=== PATIENT | female | born 1980 | race Caucasian/White ===

== ENCOUNTER 2019-10-23 15:24 | Inpatient (IN) | payer OTHER ==
--- NOTE | 2019-10-23 15:48 | EDM.PDOC ---
<Jeramie Fritz - Last Filed: 10/23/19 19:50> ED HPI GENERAL MEDICAL PROBLEM - General Chief Complaint: Abdominal Pain Stated Complaint: ABDOMINAL PAIN Time Seen by Provider: 10/23/19 15:47 - History of Present Illness INITIAL COMMENTS - FREE TEXT/NARRATIVE: 39-year-old female presents the emergency room with abdominal pain. This pain basically started early this morning and gradually got worse through the course the day. The patient has had some significant nausea loss of appetite she vomited 1 time. But she has not been eating very much and not much came up. She describes the pain is periumbilical and crampy at times. Patient has no prior history of abdominal surgeries or significant medical problems. Patient denies any fevers or chills she does note that if she takes a deep breath then the abdominal pain gets a little worse. Problems with burning or frequency with urination. Denies problems with constipation or diarrhea. Bilateral Lower Abdomen Pain Score (Numeric/FACES): 5 - Related Data Allergies Allergy/AdvReac Type Severity Reaction Status Date / Time No Known Allergies Allergy Verified 10/23/19 15:41 Home Meds: Home Meds Pantoprazole Sodium [Protonix] 40 mg PO Q24H #30 tablet. 10/23/19 [Rx] Sucralfate [Carafate] 1 gm PO QIDACANDBED #28 cup 10/23/19 [Rx] Past Medical History - Past Health History Medical/Surgical History: Denies Medical/Surgical History HEENT History: Reports: None Cardiovascular History: Reports: None Respiratory History: Reports: None Gastrointestinal History: Reports: None Genitourinary History: Reports: None TERRITORY DEVELOPMENT MANAGER History: Reports: None Musculoskeletal History: Reports: None Psychiatric History: Reports: None Endocrine/Metabolic History: Reports: None Hematologic History: Reports: None Immunologic History: Reports: None Oncologic (Cancer) History: Reports: None Dermatologic History: Reports: None - Infectious Disease History Infectious Disease History: Reports: None - Past Surgical History Neurological Surgical History: Reports: Discectomy Social & Family History - Tobacco Use Smoking Status *Q: Never Smoker - Caffeine Use Caffeine Use: Reports: Coffee - Recreational Drug Use Recreational Drug Use: No ED ROS GENERAL - Review of Systems Review Of Systems: See Below Constitutional: Reports: No Symptoms. Denies: Fever, Chills HEENT: Reports: No Symptoms Respiratory: Reports: No Symptoms. Denies: Shortness of Breath, Cough, Sputum Cardiovascular: Reports: No Symptoms Endocrine: Reports: No Symptoms GI/Abdominal: Reports: Abdominal Pain, Decreased Appetite, Nausea, Vomiting. Denies: No Symptoms, Constipation, Diarrhea : Reports: No Symptoms Musculoskeletal: Reports: No Symptoms Skin: Reports: No Symptoms Neurological: Reports: No Symptoms Hematologic/Lymphatic: Reports: No Symptoms Immunologic: Reports: No Symptoms ED EXAM, GI/ABD - Physical Exam Exam: See Below Exam Limited By: No Limitations General Appearance: Alert, No Apparent Distress Head: Atraumatic, Normocephalic Neck: Normal Inspection, Supple, Non-Tender, Full Range of Motion Respiratory/Chest: No Respiratory Distress, Lungs Clear, Normal Breath Sounds Cardiovascular: Regular Rate, Rhythm, No Edema, No Murmur GI/Abdominal Exam: Normal Bowel Sounds, Soft, No Mass, Tender (Patient has significant discomfort in the epigastric area and to a lesser degree left upper quadrant no significant right upper quadrant pain no significant lower abdominal pain with palpation no rigidity rebound or guarding.). No: Distended , Guarding, Rigid, Rebound Back Exam: Normal Inspection. No: CVA Tenderness (L), CVA Tenderness (R) Neurological: Alert, Oriented, Normal Cognition Course - Vital Signs Last Recorded V/S: Last Vital Signs Temp 36.9 C 10/23/19 15:37 Pulse 77 10/23/19 15:37 Resp 16 10/23/19 15:37 BP 128/97 H 10/23/19 15:37 Pulse Ox 98 10/23/19 15:37 - Orders/Labs/Meds Orders: Active Orders 24 hr Category Date Time Status Patient Status [ADT] Routine ADT 10/23/19 20:40 Active Sodium Chloride 0.9% [Saline Flush] Med 10/23/19 19:37 Active 10 ml FLUSH ONETIME PRN ceFAZolin [Ancef] 2 gm Med 10/23/19 20:39 Ordered Premix Bag 1 bag IV ONETIME metroNIDAZOLE/Normal Saline [Flagyl 500 MG in NS 100 ML Med 10/23/19 20:40 Ordered ] 500 mg Premix Bag 1 bag IV ONETIME Medication Orders Cefazolin Sodium/Dextrose 2 gm (/ Premix) 50 mls @ 100 mls/hr IV ONETIME STA Stop: 04/19/20 21:08 Metronidazole 500 mg/ Premix 100 mls @ 100 mls/hr IV ONETIME STA Stop: 10/23/19 21:39 Sodium Chloride (Saline Flush) 10 ml FLUSH ONETIME PRN PRN Reason: KEEP VEIN OPEN Last Admin: 10/23/19 19:45 Dose: 10 ml Labs: Laboratory Tests 10/23/19 10/23/19 10/23/19 Range/Units 17:00 17:00 17:00 WBC 10.46 H (3.98-10.04) K/mm3 RBC 4.95 (3.98-5.22) M/mm3 Hgb 14.2 (11.2-15.7) gm/dl Hct 42.6 (34.1-44.9) % MCV 86.1 (79.4-94.8) fl MCH 28.7 (25.6-32.2) pg MCHC 33.3 (32.2-35.5) g/dl RDW Std Deviation 41.7 (36.4-46.3) fL Plt Count 353 (182-369) K/mm3 MPV 8.1 L (9.4-12.3) fl Neut % (Auto) 82.1 H (34.0-71.1) % Lymph % (Auto) 12.1 L (19.3-51.7) % [place] % (Auto) 4.7 (4.7-12.5) % Eos % (Auto) 0.3 L (0.7-5.8) Baso % (Auto) 0.6 (0.1-1.2) % Neut # (Auto) 8.59 H (1.56-6.13) K/mm3 Lymph # (Auto) 1.27 (1.18-3.74) K/mm3 [place] # (Auto) 0.49 H (0.24-0.36) K/mm3 Eos # (Auto) 0.03 L (0.04-0.36) K/mm3 Baso # (Auto) 0.06 (0.01-0.08) K/mm3 Manual Slide Review Normal smear Sodium 138 (136-145) mEq/L Potassium 4.1 (3.5-5.1) mEq/L Chloride 101 (98-107) mEq/L Carbon Dioxide 23 (21-32) mEq/L Anion Gap 18.1 H (5-15) BUN 8 (7-18) mg/dL Creatinine 0.8 (0.55-1.02) mg/dL Est Cr Clr Drug Dosing 86.63 mL/min Estimated GFR (MDRD) > 60 (>60) mL/min BUN/Creatinine Ratio 10.0 L (14-18) Glucose 107 H (74-106) mg/dL Calcium 10.1 (8.5-10.1) mg/dL Total Bilirubin 0.6 (0.2-1.0) mg/dL AST 15 (15-37) U/L ALT 17 (14-59) U/L Alkaline Phosphatase 66 (46-116) U/L Total Protein 7.5 (6.4-8.2) g/dl Albumin 4.1 (3.4-5.0) g/dl Globulin 3.4 gm/dL Albumin/Globulin Ratio 1.2 (1-2) Lipase 105 (73-393) U/L HCG, Qual Negative (NEGATIVE) Urine Color (Yellow) Urine Appearance (Clear) Urine pH (5.0-8.0) Ur Specific [place] (1.005-1.030) Urine Protein (Negative) Urine Glucose (UA) (Negative) Urine Ketones (Negative) Urine Occult Blood (Negative) Urine Nitrite (Negative) Urine Bilirubin (Negative) Urine Urobilinogen (0.2-1.0) Ur Leukocyte Esterase (Negative) Urine RBC (0-5) /hpf Urine WBC (0-5) /hpf Ur Squamous Epith Cells (0-5) /hpf Urine Bacteria (FEW) /hpf Urine Mucus (FEW) /hpf 10/23/19 Range/Units 18:24 WBC (3.98-10.04) K/mm3 RBC (3.98-5.22) M/mm3 Hgb (11.2-15.7) gm/dl Hct (34.1-44.9) % MCV (79.4-94.8) fl MCH (25.6-32.2) pg MCHC (32.2-35.5) g/dl RDW Std Deviation (36.4-46.3) fL Plt Count (182-369) K/mm3 MPV (9.4-12.3) fl Neut % (Auto) (34.0-71.1) % Lymph % (Auto) (19.3-51.7) % [place] % (Auto) (4.7-12.5) % Eos % (Auto) (0.7-5.8) Baso % (Auto) (0.1-1.2) % Neut # (Auto) (1.56-6.13) K/mm3 Lymph # (Auto) (1.18-3.74) K/mm3 [place] # (Auto) (0.24-0.36) K/mm3 Eos # (Auto) (0.04-0.36) K/mm3 Baso # (Auto) (0.01-0.08) K/mm3 Manual Slide Review Sodium (136-145) mEq/L Potassium (3.5-5.1) mEq/L Chloride (98-107) mEq/L Carbon Dioxide (21-32) mEq/L Anion Gap (5-15) BUN (7-18) mg/dL Creatinine (0.55-1.02) mg/dL Est Cr Clr Drug Dosing mL/min Estimated GFR (MDRD) (>60) mL/min BUN/Creatinine Ratio (14-18) Glucose (74-106) mg/dL Calcium (8.5-10.1) mg/dL Total Bilirubin (0.2-1.0) mg/dL AST (15-37) U/L ALT (14-59) U/L Alkaline Phosphatase (46-116) U/L Total Protein (6.4-8.2) g/dl Albumin (3.4-5.0) g/dl Globulin gm/dL Albumin/Globulin Ratio (1-2) Lipase (73-393) U/L HCG, Qual (NEGATIVE) Urine Color Yellow (Yellow) Urine Appearance Clear (Clear) Urine pH 5.5 (5.0-8.0) Ur Specific [place] > or = 1.030 (1.005-1.030) Urine Protein Negative (Negative) Urine Glucose (UA) Negative (Negative) Urine Ketones 3+ H (Negative) Urine Occult Blood 2+ H (Negative) Urine Nitrite Negative (Negative) Urine Bilirubin 1+ H (Negative) Urine Urobilinogen 0.2 (0.2-1.0) Ur Leukocyte Esterase Negative (Negative) Urine RBC 0-5 (0-5) /hpf Urine WBC 0-5 (0-5) /hpf Ur Squamous Epith Cells 0-5 (0-5) /hpf Urine Bacteria Few (FEW) /hpf Urine Mucus Few (FEW) /hpf Meds: Medications Generic Name Dose Route Start Last Admin Trade Name Freq PRN Reason Stop Dose Admin Cefazolin Sodium/Dextrose 2 gm 50 mls @ 100 mls/hr 10/23/19 20:39 / Premix IV 10/23/19 21:08 ONETIME STA Metronidazole 500 mg/ Premix 100 mls @ 100 mls/hr 10/23/19 20:40 IV 10/23/19 21:39 ONETIME STA Sodium Chloride 10 ml 10/23/19 19:37 10/23/19 19:45 Saline Flush FLUSH 10 ml ONETIME PRN Administration KEEP VEIN OPEN Discontinued Medications Generic Name Dose Route Start Last Admin Trade Name Freq PRN Reason Stop Dose Admin Al Hydroxide/Mg Hydroxide 30 0 ml 10/23/19 16:18 10/23/19 17:00 ml/ Lidocaine HCl 15 ml PO 10/23/19 16:19 45 ml ONETIME ONE Administration Fentanyl 50 mcg 10/23/19 18:57 10/23/19 19:04 Sublimaze IVPUSH 10/23/19 18:58 50 mcg ONETIME ONE Administration Hydromorphone HCl 1 mg 10/23/19 20:09 10/23/19 20:16 Dilaudid IVPUSH 10/23/19 20:10 1 mg ONETIME ONE Administration Lactated Ringer's 1,000 mls @ 999 mls/hr 10/23/19 16:18 10/23/19 17:00 Ringers, Lactated IV 10/23/19 17:18 999 mls/hr .BOLUS ONE Administration Iopamidol 100 ml 10/23/19 19:37 10/23/19 19:45 Isovue-300 (61%) IVPUSH 10/23/19 19:38 100 ml ONETIME ONE Administration Ondansetron HCl 4 mg 10/23/19 16:18 10/23/19 17:00 Zofran IVPUSH 10/23/19 16:19 4 mg ONETIME ONE Administration Pantoprazole Sodium 80 mg 10/23/19 17:41 10/23/19 17:52 Protonix Iv IVPUSH 10/23/19 17:42 80 mg BOLUS ONE Administration Sucralfate 1 gm 10/23/19 17:41 10/23/19 17:53 Carafate PO 10/23/19 17:42 1 gm ONETIME ONE Administration - Re-Assessments/Exams Free Text/Narrative Re-Assessment/Exam: 10/23/19 17:44 Had good improvement with her GI cocktail but it was really short-lived and the pain is coming back we will give her some Protonix and Carafate now still waiting on a urinalysis KUB and upright still pending. 10/23/19 18:37 Had improvement with the Carafate. X-rays been done she has a very large what looks like colonic gas pocket in the splenic flexure of the colon. I cannot be certain this is not in her stomach awaiting radiology read. 10/23/19 19:21 Radiologist believes this was slightly dilated colonic gas pocket but to be certain he wanted to get decubitus views this is happening at this time. 10/23/19 19:29 Decubitus view reviewed by radiology there is some questionable concern about free air noted radiology recommends CT with IV contrast no oral Departure - Departure Disposition: Admitted As Inpatient 64 Clinical Impression: Volvulus of transverse colon - Discharge Information Prescriptions: Pantoprazole Sodium [Protonix] 40 mg PO Q24H #30 tablet. Sucralfate [Carafate] 1 gm PO QIDACANDBED #28 cup Referrals: Jelly Lind, UROLOGY PHYSICIAN ASSISTANT [Primary Care Provider] - Forms: ED Department Discharge Sepsis Event Note - Evaluation Sepsis Screening Result: No Definite Risk - Focused Exam Vital Signs: Vital Signs Temp Pulse Resp BP Pulse Ox 10/23/19 15:37 36.9 C 77 16 128/97 H 98 Date Exam was Performed: 10/23/19 Time Exam was Performed: 19:50 - My Orders Last 24 Hours: My Active Orders 10/23/19 20:39 ceFAZolin [Ancef] 2 gm Premix Bag 1 bag IV ONETIME 10/23/19 20:40 Patient Status [ADT] Routine metroNIDAZOLE/Normal Saline [Flagyl 500 MG in NS 100 ML] 500 mg Premix Bag 1 bag IV ONETIME - Assessment/Plan Last 24 Hours: My Active Orders 10/23/19 20:39 ceFAZolin [Ancef] 2 gm Premix Bag 1 bag IV ONETIME 10/23/19 20:40 Patient Status [ADT] Routine metroNIDAZOLE/Normal Saline [Flagyl 500 MG in NS 100 ML] 500 mg Premix Bag 1 bag IV ONETIME <Nate Giordano - Last Filed: 10/23/19 20:43> Course - Re-Assessments/Exams Free Text/Narrative Re-Assessment/Exam: 10/23/19 20:[address] Fritz. I evaluated the patient. As above, the patient developed central abdominal pain that radiates through to her back, this morning. The pain is been constant, with intermittent severe cramps. Overall, it progressively got worse over the course of the day. No associated fever, chills, constipation, diarrhea, or urinary symptoms. No prior similar symptoms. On examination, the patient's abdomen is soft, with no bowel sounds appreciated. She has tenderness primarily in the epigastrium, and no significant tenderness elsewhere. Pain radiates to her lower back in general , but she has no tenderness to her back, and no CVA tenderness. She requested additional pain medicine; I have ordered 1 mg IV Dilaudid. The patient last ate around 12 noon, although she was given both sucralfate and a GI cocktail here in the ED. I have reviewed the patient's abdominal x-rays and, combined with her physical exam, I am greatly concerned that she is suffering from a volvulus. She has already gone to CT scan; we are awaiting those results. 10/23/19 20:27 CT of the abdomen and pelvis with IV contrast as read by Dr. Mishra as: 1. Gas dilated splenic flexure. This may relate to volvulus as mesenteric whirling is seen near the junction of the splenic flexure and transverse colon. 2. No free air is seen. 3. Other findings believed to be incidental as noted above. 10/23/19 20:[address] Washington at 20:30. She will review the images then come to the ED to evaluate the patient. 10/23/19 20:40 Dr. Washington called back at 20:38. She would like to take the patient to the operating room immediately. We are to call the OR crew in. I will give the patient cefazolin 2 g IV and metronidazole 500 mg IV. Departure - Departure Time of Disposition: 20:42 - Discharge Information *PRESCRIPTION DRUG MONITORING PROGRAM REVIEWED*: Not Applicable *COPY OF PRESCRIPTION DRUG MONITORING REPORT IN PATIENT SAMMIE: Not Applicable Sepsis Event Note - Focused Exam Date Exam was Performed: 10/23/19 Time Exam was Performed: 20:40
[2019-10-23] MEDS ORDERED: Lactated Ringers 1,000 ML IV ONE (16:18)
[2019-10-23] MEDS ORDERED: Alum Hydrox/Mag Hydrox/Simeth 30 ML, Lidocaine 2% 15 ML PO ONE ×2 (16:18)
[2019-10-23] MEDS ORDERED: Ondansetron 4 MG/2 ML SDV IVPUSH ONE (16:18)
[2019-10-23] MEDS ORDERED: Sucralfate Suspension 1 GM/10 ML Cup PO ONE (17:41)
[2019-10-23] MEDS ORDERED: Pantoprazole 40 MG Vial IVPUSH ONE (17:41)
--- NOTE | 2019-10-23 18:43 | CR ---
Abdomen: Supine and upright views the abdomen were obtained. Slightly prominent gas within the splenic flexure is noted. Air-fluid level is seen on the upright view. IUD is present within the pelvis. Bony structures are unremarkable. No free air is seen. Impression: 1. Slightly prominent gas within the splenic flexure with air-fluid levels. Recommend decubitus view with left side up to rule out left-sided colonic obstruction. 2. IUD within the pelvis. 3. No additional abnormality is seen. Diagnostic code #3 This report was dictated in MDT
[2019-10-23] MEDS ORDERED: fentaNYL 100 MCG/2 ML SDV IVPUSH ONE (18:57)
--- NOTE | 2019-10-23 19:30 | CR ---
Abdomen: Decubitus view of the abdomen was obtained with left side up. Dilated gas-filled loop of colon again noted which is the splenic flexure. There now is questionable free air being seen which may relate to overlapping gas-filled bowel but free air is difficult to completely exclude. Lack of gas into the descending colon is noted. Impression: 1. Questionable free air. Continuing dilated splenic flexure with lack of gas within the descending colon. 2. CT abdomen and pelvis study could now be considered (IV but no oral contrast is felt to be needed if performed). Diagnostic code #3 This report was dictated in MDT
[2019-10-23] MEDS ORDERED: Sodium Chloride 0.9% 10 ML Syringe FLUSH PRN (19:37)
[2019-10-23] MEDS ORDERED: Iopamidol 612 MG/ML 100 ML Bottle IVPUSH ONE (19:37)
[2019-10-23] MEDS ORDERED: HYDROmorphone 1 MG/ML Syringe IVPUSH ONE (20:09)
--- NOTE | 2019-10-23 20:09 | CT ---
CT abdomen Technique: Multiple axial sections were obtained from above the dome of the diaphragm inferiorly through the pubic symphysis. Intravenous contrast was utilized. No oral contrast has been given. Findings: No free air is seen as suggested on plain film study. Gas dilated splenic fracture of the colon is seen. Along the transverse side of the splenic flexion there appears to be whirling of adjacent vessels and mesentery and difficult to exclude a mild volvulus as the etiology of the splenic finding. Other portions of the bowel appear within normal limits. Visualized lung bases show nothing acute. Liver and spleen shows no focal parenchymal abnormality. Gallbladder is mostly collapsed without calcified gallstones. Adrenal glands show no nodule. Pancreas shows no discrete abnormality. Kidneys show symmetric contrast enhancement without hydronephrosis or mass. No pelvic mass or adenopathy is seen. IUD present within the pelvis. No free fluid or inflammatory change is seen. Appendix not visualized with certainty. Bone window settings were reviewed which shows a small fat-containing umbilical hernia. No acute osseous finding is seen. Impression: 1. Gas dilated splenic flexure. This may relate to volvulus as mesenteric whirling is seen near the junction of the splenic flexure and transverse colon. 2. No free air is seen. 3. Other findings believed to be incidental as noted above. Diagnostic code #5 This report was dictated in MDT
[2019-10-23] MEDS ORDERED: ceFAZolin 2 GM in Premix Bag 1 BAG IV STA (20:39)
[2019-10-23] MEDS ORDERED: metroNIDAZOLE/Normal Saline 500 MG in Premix Bag 1 BAG IV STA (20:40)
--- NOTE | 2019-10-23 21:05 | PCM.PREANE ---
Preanesthetic Assessment - Procedure Proposed Procedure: EXPLORATORY LAPAROTOMY - Anesthesia/Transfusion/Family Hx Anesthesia History: Prior Anesthesia Without Reaction Family History of Anesthesia Reaction: No Transfusion History: No Prior Transfusion(s) - Review of Systems General: No Symptoms Pulmonary: No Symptoms Cardiovascular: No Symptoms Gastrointestinal: Abdominal Pain (this am), Nausea, Other (keto diet - lost 35 in ) Neurological: No Symptoms Other: Reports: None - Physical Assessment NPO Status Date: 10/23/19 NPO Status Time: 12:00 Vital Signs: Last Vital Signs Temp 98.5 F 10/23/19 15:37 Pulse 77 10/23/19 15:37 Resp 16 10/23/19 15:37 BP 128/97 H 10/23/19 15:37 Pulse Ox 98 10/23/19 15:37 Height: 5 ft 6 in Weight: 83.915 kg ASA Class: 1E Mental Status: Alert & Oriented x3 Airway Class: Mallampati = 1 Dentition: Reports: Normal Dentition Thyro-Mental Finger Breadths: 3 Mouth Opening Finger Breadths: 3 ROM/Head Extension: Full Lungs: Clear to Auscultation, Normal Respiratory Effort Cardiovascular: Regular Rate, Regular Rhythm, No Murmurs - Lab Values: Laboratory Last Values WBC 10.46 K/mm3 (3.98-10.04) H 10/23/19 17:00 RBC 4.95 M/mm3 (3.98-5.22) 10/23/19 17:00 Hgb 14.2 gm/dl (11.2-15.7) 10/23/19 17:00 Hct 42.6 % (34.1-44.9) 10/23/19 17:00 MCV 86.1 fl (79.4-94.8) 10/23/19 17:00 MCH 28.7 pg (25.6-32.2) 10/23/19 17:00 MCHC 33.3 g/dl (32.2-35.5) 10/23/19 17:00 RDW Std Deviation 41.7 fL (36.4-46.3) 10/23/19 17:00 Plt Count 353 K/mm3 (182-369) 10/23/19 17:00 MPV 8.1 fl (9.4-12.3) L 10/23/19 17:00 Neut % (Auto) 82.1 % (34.0-71.1) H 10/23/19 17:00 Lymph % (Auto) 12.1 % (19.3-51.7) L 10/23/19 17:00 [place] % (Auto) 4.7 % (4.7-12.5) 10/23/19 17:00 Eos % (Auto) 0.3 (0.7-5.8) L 10/23/19 17:00 Baso % (Auto) 0.6 % (0.1-1.2) 10/23/19 17:00 Neut # (Auto) 8.59 K/mm3 (1.56-6.13) H 10/23/19 17:00 Lymph # (Auto) 1.27 K/mm3 (1.18-3.74) 10/23/19 17:00 [place] # (Auto) 0.49 K/mm3 (0.24-0.36) H 10/23/19 17:00 Eos # (Auto) 0.03 K/mm3 (0.04-0.36) L 10/23/19 17:00 Baso # (Auto) 0.06 K/mm3 (0.01-0.08) 10/23/19 17:00 Manual Slide Review Normal smear 10/23/19 17:00 Sodium 138 mEq/L (136-145) 10/23/19 17:00 Potassium 4.1 mEq/L (3.5-5.1) 10/23/19 17:00 Chloride 101 mEq/L (98-107) 10/23/19 17:00 Carbon Dioxide 23 mEq/L (21-32) 10/23/19 17:00 Anion Gap 18.1 (5-15) H 10/23/19 17:00 BUN 8 mg/dL (7-18) 10/23/19 17:00 Creatinine 0.8 mg/dL (0.55-1.02) 10/23/19 17:00 Est Cr Clr Drug Dosing 86.63 mL/min 10/23/19 17:00 Estimated GFR (MDRD) > 60 mL/min (>60) 10/23/19 17:00 BUN/Creatinine Ratio 10.0 (14-18) L 10/23/19 17:00 Glucose 107 mg/dL (74-106) H 10/23/19 17:00 Calcium 10.1 mg/dL (8.5-10.1) 10/23/19 17:00 Total Bilirubin 0.6 mg/dL (0.2-1.0) 10/23/19 17:00 AST 15 U/L (15-37) 10/23/19 17:00 ALT 17 U/L (14-59) 10/23/19 17:00 Alkaline Phosphatase 66 U/L (46-116) 10/23/19 17:00 Total Protein 7.5 g/dl (6.4-8.2) 10/23/19 17:00 Albumin 4.1 g/dl (3.4-5.0) 10/23/19 17:00 Globulin 3.4 gm/dL 10/23/19 17:00 Albumin/Globulin Ratio 1.2 (1-2) 10/23/19 17:00 Lipase 105 U/L (73-393) 10/23/19 17:00 HCG, Qual Negative (NEGATIVE) 10/23/19 17:00 Urine Color Yellow (Yellow) 10/23/19 18:24 Urine Appearance Clear (Clear) 10/23/19 18:24 Urine pH 5.5 (5.0-8.0) 10/23/19 18:24 Ur Specific [place] > or = 1.030 (1.005-1.030) 10/23/19 18:24 Urine Protein Negative (Negative) 10/23/19 18:24 Urine Glucose (UA) Negative (Negative) 10/23/19 18:24 Urine Ketones 3+ (Negative) H 10/23/19 18:24 Urine Occult Blood 2+ (Negative) H 10/23/19 18:24 Urine Nitrite Negative (Negative) 10/23/19 18:24 Urine Bilirubin 1+ (Negative) H 10/23/19 18:24 Urine Urobilinogen 0.2 (0.2-1.0) 10/23/19 18:24 Ur Leukocyte Esterase Negative (Negative) 10/23/19 18:24 Urine RBC 0-5 /hpf (0-5) 10/23/19 18:24 Urine WBC 0-5 /hpf (0-5) 10/23/19 18:24 Ur Squamous Epith Cells 0-5 /hpf (0-5) 10/23/19 18:24 Urine Bacteria Few /hpf (FEW) 10/23/19 18:24 Urine Mucus Few /hpf (FEW) 10/23/19 18:24 - Allergies Allergies/Adverse Reactions: Allergies Allergy/AdvReac Type Severity Reaction Status Date / Time No Known Allergies Allergy Verified 10/23/19 15:41 - Blood Blood Available: No - Acknowledgements Anesthesia Type Planned: General Anesthesia Pt an Appropriate Candidate for the Planned Anesthesia: Yes Alternatives and Risks of Anesthesia Discussed w Pt/Guardian: Yes Pt/Guardian Understands and Agrees with Anesthesia Plan: Yes PreAnesthesia Questionnaire - Past Health History Medical/Surgical History: Denies Medical/Surgical History HEENT History: Reports: None Cardiovascular History: Reports: None Respiratory History: Reports: None Gastrointestinal History: Reports: None Genitourinary History: Reports: None 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 Musculoskeletal History: Reports: None Psychiatric History: Reports: None Endocrine/Metabolic History: Reports: None Hematologic History: Reports: None Immunologic History: Reports: None Oncologic (Cancer) History: Reports: None Dermatologic History: Reports: None - Infectious Disease History Infectious Disease History: Reports: None - Past Surgical History Neurological Surgical History: Reports: Discectomy - SUBSTANCE USE Smoking Status *Q: Never Smoker Tobacco Use Within Last Twelve Months: No Second Hand Smoke Exposure: No Days Per Week of Alcohol Use: 0 Recreational Drug Use History: No - HOME MEDS Home Medications: Home Meds Pantoprazole Sodium [Protonix] 40 mg PO Q24H #30 tablet. 10/23/19 [Rx] Sucralfate [Carafate] 1 gm PO QIDACANDBED #28 cup 10/23/19 [Rx] - CURRENT (IN HOUSE) MEDS Current Meds: Current Medications Cefazolin Sodium/Dextrose 2 gm (/ Premix) 50 mls @ 100 mls/hr IV ONETIME STA Stop: 10/23/19 21:08 Last Admin: 10/23/19 20:47 Dose: 100 mls/hr Metronidazole 500 mg/ Premix 100 mls @ 100 mls/hr IV ONETIME STA Stop: 10/23/19 21:39 Last Admin: 10/23/19 20:48 Dose: 100 mls/hr Sodium Chloride (Saline Flush) 10 ml FLUSH ONETIME PRN PRN Reason: KEEP VEIN OPEN Last Admin: 04/19/20 19:45 Dose: 10 ml Discontinued Medications Al Hydroxide/Mg Hydroxide 30 (ml/ Lidocaine HCl 15 ml) 0 ml PO ONETIME ONE Stop: 10/23/19 16:19 Last Admin: 10/23/19 17:00 Dose: 45 ml Fentanyl (Sublimaze) 50 mcg IVPUSH ONETIME ONE Stop: 10/23/19 18:58 Last Admin: 10/23/19 19:04 Dose: 50 mcg Hydromorphone HCl (Dilaudid) 1 mg IVPUSH ONETIME ONE Stop: 10/23/19 20:10 Last Admin: 10/23/19 20:16 Dose: 1 mg Lactated Ringer's (Ringers, Lactated) 1,000 mls @ 999 mls/hr IV .BOLUS ONE Stop: 10/23/19 17:18 Last Admin: 10/23/19 17:00 Dose: 999 mls/hr Iopamidol (Isovue-300 (61%)) 100 ml IVPUSH ONETIME ONE Stop: 10/23/19 19:38 Last Admin: 10/23/19 19:45 Dose: 100 ml Ondansetron HCl (Zofran) 4 mg IVPUSH ONETIME ONE Stop: 10/23/19 16:19 Last Admin: 10/23/19 17:00 Dose: 4 mg Pantoprazole Sodium (Protonix Iv) 80 mg IVPUSH BOLUS ONE Stop: 10/23/19 17:42 Last Admin: 10/23/19 17:52 Dose: 80 mg Sucralfate (Carafate) 1 gm PO ONETIME ONE Stop: 10/23/19 17:42 Last Admin: 10/23/19 17:53 Dose: 1 gm
[2019-10-23] MEDS ORDERED: fentaNYL 250 MCG/5 ML SDV ONE ×2 (21:18→22:24)
[2019-10-23] MEDS ORDERED: Lidocaine 1% 4 ML ONE (21:18)
[2019-10-23] MEDS ORDERED: Rocuronium 50 MG/5 ML Vial ONE (21:18)
[2019-10-23] MEDS ORDERED: Midazolam 1 MG/ML 2 ML SDV ONE (21:18)
[2019-10-23] MEDS ORDERED: Propofol 200 MG/20 ML SDV ONE (21:18)
[2019-10-23] MEDS ORDERED: Ondansetron 4 MG/2 ML SDV ONE (21:18)
[2019-10-23] MEDS ORDERED: Dexamethasone 4 MG/ML 5 ML MDV ONE (21:19)
[2019-10-23] MEDS ORDERED: Succinylcholine/Sod PF 100 MG/5 ML SYRINGE IV ONE (21:19)
[2019-10-23] MEDS ORDERED: diphenhydrAMINE 50 MG/ML SDV ONE (21:23)
--- NOTE | 2019-10-23 21:30 | PCM.HP.2 ---
H&P History of Present Illness - General Date of Service: 10/23/19 Admit Problem/Dx: Admission Diagnosis/Problem Admission Diagnosis/Problem Volvulus of colon Source of Information: Patient, Provider - History of Present Illness Initial Comments - Free Text/Narative: The patient is a 39 y/o female who presents with acute onset of abdominal pain today. She noted cramping earlier today, and thought it was related to her IUD. The pain worsened over the course of the day until it became unbearable and she sought medical treatment. She also was having nausea/vomiting. She had a normal BM earlier today. She normally has a formed stool daily. No history of constipation. No family history of colon cancer or bowel diseases. Bilateral Lower Abdomen Pain Score (Numeric/FACES): 5 - Related Data Allergies/Adverse Reactions: Allergies Allergy/AdvReac Type Severity Reaction Status Date / Time No Known Allergies Allergy Verified 10/23/19 15:41 Home Medications: Home Meds Pantoprazole Sodium [Protonix] 40 mg PO Q24H #30 tablet. 10/23/19 [Rx] Sucralfate [Carafate] 1 gm PO QIDACANDBED #28 cup 10/23/19 [Rx] Past Medical History - Past Health History Medical/Surgical History: Denies Medical/Surgical History HEENT History: Reports: None Cardiovascular History: Reports: None Respiratory History: Reports: None Gastrointestinal History: Reports: None Genitourinary History: Reports: None EMERGENCY VEHICLE DISPATCHER History: Reports: None Musculoskeletal History: Reports: None Psychiatric History: Reports: None Endocrine/Metabolic History: Reports: None Hematologic History: Reports: None Immunologic History: Reports: None Oncologic (Cancer) History: Reports: None Dermatologic History: Reports: None - Infectious Disease History Infectious Disease History: Reports: None - Past Surgical History Neurological Surgical History: Reports: Discectomy Social & Family History - Family History Cardiac: Denies: ME : Reports: None Neurological: Denies: CVA Oncologic: Denies: Colon - Tobacco Use Smoking Status *Q: Never Smoker Second Hand Smoke Exposure: No - Caffeine Use Caffeine Use: Reports: Coffee - Alcohol Use Days Per Week of Alcohol Use: 0 - Recreational Drug Use Recreational Drug Use: No H&P Review of Systems - Review of Systems: Review Of Systems: See Below General: Reports: Weight Loss (intentional). Denies: Fever HEENT: Reports: No Symptoms Pulmonary: Reports: No Symptoms Gastrointestinal: Reports: Abdominal Pain, Nausea, Vomiting Genitourinary: Reports: No Symptoms Musculoskeletal: Reports: No Symptoms Skin: Reports: No Symptoms Neurological: Reports: No Symptoms Hematologic/Lymphatic: Reports: No Symptoms Exam - Exam Exam: See Below - Vital Signs Vital Signs: Last Vital Signs Temp 36.9 C 10/23/19 15:37 Pulse 77 10/23/19 15:37 Resp 16 10/23/19 15:37 BP 128/97 H 10/23/19 15:37 Pulse Ox 98 10/23/19 15:37 Weight: 83.915 kg - Exam Quality Assessment: No: Supplemental Oxygen General: Alert, Oriented HEENT: Conjunctiva Clear, EOMI Neck: Supple Lungs: Normal Respiratory Effort Cardiovascular: Regular Rate, Regular Rhythm GI/Abdominal Exam: Soft, Distended (in upper abdomen), Tender (in upper quadrants) Extremities: No Pedal Edema Peripheral Pulses: 2+: Dorsalis Pedis (L), Dorsalis Pedis (R) Skin: Warm, Dry, Intact Neurological: Cranial Nerves Intact Neuro Extensive - Mental Status: Normal Mood/Affect - Patient Data Lab Results Last 24 hrs: Laboratory Results - last 24 hr 10/23/19 10/23/19 10/23/19 Range/Units 17:00 17:00 17:00 WBC 10.46 H (3.98-10.04) K/mm3 RBC 4.95 (3.98-5.22) M/mm3 Hgb 14.2 (11.2-15.7) gm/dl Hct 42.6 (34.1-44.9) % MCV 86.1 (79.4-94.8) fl MCH 28.7 (25.6-32.2) pg MCHC 33.3 (32.2-35.5) g/dl RDW Std Deviation 41.7 (36.4-46.3) fL Plt Count 353 (182-369) K/mm3 MPV 8.1 L (9.4-12.3) fl Neut % (Auto) 82.1 H (34.0-71.1) % Lymph % (Auto) 12.1 L (19.3-51.7) % [place] % (Auto) 4.7 (4.7-12.5) % Eos % (Auto) 0.3 L (0.7-5.8) Baso % (Auto) 0.6 (0.1-1.2) % Neut # (Auto) 8.59 H (1.56-6.13) K/mm3 Lymph # (Auto) 1.27 (1.18-3.74) K/mm3 [place] # (Auto) 0.49 H (0.24-0.36) K/mm3 Eos # (Auto) 0.03 L (0.04-0.36) K/mm3 Baso # (Auto) 0.06 (0.01-0.08) K/mm3 Manual Slide Review Normal smear Sodium 138 (136-145) mEq/L Potassium 4.1 (3.5-5.1) mEq/L Chloride 101 (98-107) mEq/L Carbon Dioxide 23 (21-32) mEq/L Anion Gap 18.1 H (5-15) BUN 8 (7-18) mg/dL Creatinine 0.8 (0.55-1.02) mg/dL Est Cr Clr Drug Dosing 86.63 mL/min Estimated GFR (MDRD) > 60 (>60) mL/min BUN/Creatinine Ratio 10.0 L (14-18) Glucose 107 H (74-106) mg/dL Calcium 10.1 (8.5-10.1) mg/dL Total Bilirubin 0.6 (0.2-1.0) mg/dL AST 15 (15-37) U/L ALT 17 (14-59) U/L Alkaline Phosphatase 66 (46-116) U/L Total Protein 7.5 (6.4-8.2) g/dl Albumin 4.1 (3.4-5.0) g/dl Globulin 3.4 gm/dL Albumin/Globulin Ratio 1.2 (1-2) Lipase 105 (73-393) U/L HCG, Qual Negative (NEGATIVE) Urine Color (Yellow) Urine Appearance (Clear) Urine pH (5.0-8.0) Ur Specific [place] (1.005-1.030) Urine Protein (Negative) Urine Glucose (UA) (Negative) Urine Ketones (Negative) Urine Occult Blood (Negative) Urine Nitrite (Negative) Urine Bilirubin (Negative) Urine Urobilinogen (0.2-1.0) Ur Leukocyte Esterase (Negative) Urine RBC (0-5) /hpf Urine WBC (0-5) /hpf Ur Squamous Epith Cells (0-5) /hpf Urine Bacteria (FEW) /hpf Urine Mucus (FEW) /hpf 10/23/19 Range/Units 18:24 WBC (3.98-10.04) K/mm3 RBC (3.98-5.22) M/mm3 Hgb (11.2-15.7) gm/dl Hct (34.1-44.9) % MCV (79.4-94.8) fl MCH (25.6-32.2) pg MCHC (32.2-35.5) g/dl RDW Std Deviation (36.4-46.3) fL Plt Count (182-369) K/mm3 MPV (9.4-12.3) fl Neut % (Auto) (34.0-71.1) % Lymph % (Auto) (19.3-51.7) % [place] % (Auto) (4.7-12.5) % Eos % (Auto) (0.7-5.8) Baso % (Auto) (0.1-1.2) % Neut # (Auto) (1.56-6.13) K/mm3 Lymph # (Auto) (1.18-3.74) K/mm3 [place] # (Auto) (0.24-0.36) K/mm3 Eos # (Auto) (0.04-0.36) K/mm3 Baso # (Auto) (0.01-0.08) K/mm3 Manual Slide Review Sodium (136-145) mEq/L Potassium (3.5-5.1) mEq/L Chloride (98-107) mEq/L Carbon Dioxide (21-32) mEq/L Anion Gap (5-15) BUN (7-18) mg/dL Creatinine (0.55-1.02) mg/dL Est Cr Clr Drug Dosing mL/min Estimated GFR (MDRD) (>60) mL/min BUN/Creatinine Ratio (14-18) Glucose (74-106) mg/dL Calcium (8.5-10.1) mg/dL Total Bilirubin (0.2-1.0) mg/dL AST (15-37) U/L ALT (14-59) U/L Alkaline Phosphatase (46-116) U/L Total Protein (6.4-8.2) g/dl Albumin (3.4-5.0) g/dl Globulin gm/dL Albumin/Globulin Ratio (1-2) Lipase (73-393) U/L HCG, Qual (NEGATIVE) Urine Color Yellow (Yellow) Urine Appearance Clear (Clear) Urine pH 5.5 (5.0-8.0) Ur Specific [place] > or = 1.030 (1.005-1.030) Urine Protein Negative (Negative) Urine Glucose (UA) Negative (Negative) Urine Ketones 3+ H (Negative) Urine Occult Blood 2+ H (Negative) Urine Nitrite Negative (Negative) Urine Bilirubin 1+ H (Negative) Urine Urobilinogen 0.2 (0.2-1.0) Ur Leukocyte Esterase Negative (Negative) Urine RBC 0-5 (0-5) /hpf Urine WBC 0-5 (0-5) /hpf Ur Squamous Epith Cells 0-5 (0-5) /hpf Urine Bacteria Few (FEW) /hpf Urine Mucus Few (FEW) /hpf Result Diagrams: 10/23/19 17:00 10/23/19 17:00 Sepsis Event Note - Evaluation Sepsis Screening Result: No Definite Risk - Focused Exam Vital Signs: Vital Signs Temp Pulse Resp BP Pulse Ox 10/23/19 15:37 36.9 C 77 16 128/97 H 98 Date Exam was Performed: 10/23/19 Time Exam was Performed: 23:24 *Q Meaningful Use (ADM) - VTE Risk Assess *Q Each Risk Factor Represents 1 Point: Age 41 - 59 years Total Score 1 Point Risk Factors: 1 Each Risk Factor Represents 2 Points: Major surgery greater than 45 minutes Total Score 2 Point Risk Factors: 2 - Problem List (1) Volvulus of transverse colon SNOMED Code(s): 7434160 ICD Code: K56.2 - VOLVULUS Status: Acute Current Visit: Yes Problem List Initiated/Reviewed/Updated: Yes Orders Last 24hrs: Active Orders 24 hr Category Date Time Status Patient Status [ADT] Routine ADT 10/23/19 20:40 Active Sodium Chloride 0.9% [Saline Flush] Med 10/23/19 19:37 Active 10 ml FLUSH ONETIME PRN metroNIDAZOLE/Normal Saline [Flagyl 500 MG in NS 100 ML Med 10/23/19 20:40 Active ] 500 mg Premix Bag 1 bag IV ONETIME Schedule Procedure [COMM] Stat Oth 10/23/19 20:40 Ordered Medication Orders Metronidazole 500 mg/ Premix 100 mls @ 100 mls/hr IV ONETIME STA Stop: 10/23/19 21:39 Last Admin: 10/23/19 20:48 Dose: 100 mls/hr Sodium Chloride (Saline Flush) 10 ml FLUSH ONETIME PRN PRN Reason: KEEP VEIN OPEN Last Admin: 10/23/19 19:45 Dose: 10 ml Assessment/Plan Comment:: 39 y/o lady with colonic volvulus, appears to be from the transverse colon - plan for exploratory laparotomy, possible bowel resection, possible ostomy. Discussed risks of bleeding, infection and anastomotic leak, also the possibility of finding a mass. Her written consent was obtained. - NPO with IVF - IV abx with ancef 2g and flagyl 500mg - will need inpatient stay Noy Laureano MD General surgery.
[2019-10-23] MEDS ORDERED: Ketamine 500 mg/10 ML MDV ONE (21:56)
[2019-10-23] MEDS ORDERED: HYDROmorphone 0.5 MG/0.5 ML Syringe ONE ×2 (21:59→22:24)
[2019-10-23] MEDS ORDERED: Ondansetron 4 MG/2 ML SDV IVPUSH PRN (22:02)
[2019-10-23] MEDS ORDERED: fentaNYL 100 MCG/2 ML SDV IVPUSH PRN (22:02)
[2019-10-23] MEDS ORDERED: HYDROmorphone 0.5 MG/0.5 ML Syringe IVPUSH PRN (22:02)
[2019-10-23] MEDS ORDERED: Lactated Ringers 1,000 ML ONE (22:34)
--- NOTE | 2019-10-23 23:27 | PCM.PRNOTE ---
- Free Text/Narrative Note: Date of Surgery: 10/23/19 Operative Procedure(s): 1. Detorsion of cecal volvulus. 2. Right hemicolectomy Findings: cecal volvulus with dilated right colon Pre Op Diagnosis: bowel volvulus Post-Op Diagnosis: cecal volvulus Anesthesia Technique: General ET Tube Primary Surgeon: Noy Laureano MD Anesthesia Provider: Brandy Lundy Information Specialist: Serg Cotton Reason Information Specialist Was Necessary: surgical skilled material assistant was needed due to the complexity of the case Pathology: right colon IVF: 1,500mL Output, Urine Amount: 200mL EBL in mLs: 150 Drain/Tube Comments:: esquivel catheter Indication: The patient is a 39-year-old female who presented to the emergency department complaining of acute onset severe abdominal pain. She underwent evaluation was found to have a visceral volvulus noted on CT scan. She had an elevation in white count but otherwise had no evidence of bowel ischemia. She was consented for exploratory laparotomy with a possible right or left hemicolectomy discussed, and possible ostomy. After discussion of risks of infection, bleeding, and anastomotic leak, consent was obtained. Description of the procedure: The patient was taken back to the operating room and placed in supine position on the operating table. She had successful induction of general anesthesia with sequence intubation. She then had placement of a Esquivel catheter with return of clear yellow urine. She received Ancef 2g IV and metronidazole 500mg IV in the ED and this was administered within 1 hour from cut time. He was prepped and draped in standard surgical fashion and a timeout was performed Began by making a midline incision from the epigastric area to the midline suprapubic area. This was deepened down to the fascia using Bovie device which was then sharply entered near the level of the umbilicus. The fascia was divided and the peritoneum was entered sharply. It was immediately visible that there was a large dilated loop of colon directly beneath the wound. The Melissa retractor was then placed in the abdomen and this dilated piece of bowel was delivered it was immediately detorsed at its base. It was then identifiable as the right colon and cecum. This was dilated to the level of the hepatic flexure. The remainder of the bowel was then run and evaluated. There was no evidence of necrosis or bowel compromise. The right colon was very dilated and could not be left in place, but however did not appear necrosed. The terminal ileum was then identified 10 to 15 cm from the ileocecal valve and a 55mm ANDRAE stapler was fired across this portion of the bowel. We then mobilized a portion of the right righted white line of Toldt. This allowed good visualization and mobilization of the colon. The patient did have very redundant colon anatomy throughout length of the colon and not much mobilization was necessary. The right colon was then taken just proximal to the hepatic flexure using the 55 mm ANDRAE stapler. The mesentery was then divided using a LigaSure device. The right colon was then passed off to be sent to pathology. We then matched the cut ends of the bowel for [id number] anastomosis. The 2 ends were aligned using 3-0 silk serosal suture. The bowel was entered sharply and the colon and small intestine and the 55 mm ANDRAE stapler was then fired across to create a common channel. We then fired an additional load over the cut ends to close the bowel. We then palpated the area and there was a good of opening. We used the Bovie to achieve hemostasis and any oozing areas. The abdomen was then irrigated with 3 L of sterile saline. The fascia was closed in a running fashion with a looped 0 PDS suture. The wound was then irrigated and the skin was closed using yair. A dry dressing was applied. Patient tolerated the procedure well. The Esquivel catheter was left in place. The patient was awakened from anesthesia and extubated without difficulty. All sponge and needle counts were correct. Noy Laureano MD General Surgery
--- NOTE | 2019-10-23 23:27 | PCM.OPNOTE ---
- General Post-Op/Procedure Note Date of Surgery/Procedure: 10/23/19 Operative Procedure(s): 1. Detorsion of cecal volvulus. 2. Right hemicolectomy Findings: cecal volvulus with dilated right colon Pre Op Diagnosis: bowel volvulus Post-Op Diagnosis: cecal volvulus Anesthesia Technique: General ET Tube Primary Surgeon: Noy Laureano Anesthesia Provider: Brandy Lundy Transit Bus Operator: Serg Cotton Reason Transit Bus Operator Was Necessary: surgical skilled assistant manager pt was needed due to the complexity of the case Pathology: right colon Fluid Replacement, Intraop: 1,500 Output, Urine Amount: 200 EBL in mLs: 150 Drain/Tube Comments:: esquivel catheter Complications: none apparent Condition: Stable
--- NOTE | 2019-10-23 23:31 | PCM.POSTAN ---
POST ANESTHESIA ASSESSMENT - MENTAL STATUS Mental Status: Alert, Oriented - VITAL SIGNS Vital Signs: Last Vital Signs Temp 98.5 F 10/23/19 15:37 Pulse 89 10/23/19 21:20 Resp 18 10/23/19 21:20 BP 138/98 H 10/23/19 21:20 Pulse Ox 98 10/23/19 21:20 - RESPIRATORY Respiratory Status: Respiratory Rate WNL, Airway Patent, O2 Saturation Stable, Supplemental Oxygen - CARDIOVASCULAR CV Status: Pulse Rate WNL, Blood Pressure Stable - GASTROINTESTINAL GI Status: No Symptoms - PAIN Pain Score: 0 (feels sleepy) - POST OP HYDRATION Hydration Status: Adequate & Stable (00)
[2019-10-23] MEDS ORDERED: oxyCODONE 5 MG Tab PO PRN (23:42)
[2019-10-24] MEDS: Dextrose 5%-0.45% NaCl 1,000 ML IV SCH ×2 (01:15→13:36)
[2019-10-24] MEDS: HYDROmorphone 0.5 MG/0.5 ML Syringe IVPUSH PRN ×3 (01:15→12:13)
[2019-10-24] MEDS: Ibuprofen 600 MG Tab PO SCH ×5 (01:21→17:58)
[2019-10-24] MEDS: Ondansetron 4 MG Tab.DIS PO SCH ×5 (01:24→22:54)
[2019-10-24] MEDS: Acetaminophen 325 MG Tab PO SCH ×7 (03:28→22:54)
[2019-10-24] MEDS: ceFAZolin 2 GM in Premix Bag 1 BAG IV SCH ×2 (03:30→13:27)
[2019-10-24] MEDS: metroNIDAZOLE/Normal Saline 500 MG in Premix Bag 1 BAG IV SCH ×3 (04:05→13:28)
--- NOTE | 2019-10-24 08:00 | PCM48HPAN ---
Post Anesthesia Note - EVALUATION WITHIN 48HRS OF ANESTHETIC Vital Signs in Normal Range: Yes Patient Participated in Evaluation: Yes Respiratory Function Stable: Yes Airway Patent: Yes Cardiovascular Function Stable: Yes Hydration Status Stable: Yes Pain Control Satisfactory: Yes (Using IV pain medications for control. ) Nausea and Vomiting Control Satisfactory: Yes Mental Status Recovered: Yes Vital Signs: Last Vital Signs Temp 36.6 C 10/24/19 00:33 Pulse 96 10/24/19 03:31 Resp 16 10/24/19 00:33 BP 112/71 10/24/19 03:31 Pulse Ox 99 10/24/19 03:31
[2019-10-24] MEDS: Heparin Sodium 5,000 Units/ML Vial SUBCUT SCH ×2 (08:22→16:02)
--- NOTE | 2019-10-24 10:26 | PCM.SURGPN ---
- General Info Date of Service: 10/24/19 POD#: 1 Admission Diagnosis/Problem: Cecal volvulus Functional Status: Reports: Pain Controlled, Incentive Spirometry - Review of Systems General: Reports: No Symptoms HEENT: Reports: No Symptoms Pulmonary: Reports: No Symptoms Cardiovascular: Reports: No Symptoms Gastrointestinal: Reports: Abdominal Pain Genitourinary: Reports: No Symptoms Musculoskeletal: Reports: Back Pain Skin: Reports: No Symptoms Neurological: Reports: No Symptoms Psychiatric: Reports: No Symptoms - Patient Data Vitals - Most Recent: Last Vital Signs Temp 97.9 F 10/24/19 00:33 Pulse 96 10/24/19 03:31 Resp 16 10/24/19 00:33 BP 112/71 10/24/19 03:31 Pulse Ox 99 10/24/19 03:31 Weight - Most Recent: 83.915 kg I&O - Last 24 Hours: Intake & Output 10/23/19 10/24/19 10/24/19 22:59 06:59 14:59 Intake Total 3307 Output Total 1375 Balance 1932 Lab Results Last 24 Hrs: Laboratory Results - last 24 hr 10/23/19 10/23/19 10/23/19 Range/Units 17:00 17:00 17:00 WBC 10.46 H (3.98-10.04) K/mm3 RBC 4.95 (3.98-5.22) M/mm3 Hgb 14.2 (11.2-15.7) gm/dl Hct 42.6 (34.1-44.9) % MCV 86.1 (79.4-94.8) fl MCH 28.7 (25.6-32.2) pg MCHC 33.3 (32.2-35.5) g/dl RDW Std Deviation 41.7 (36.4-46.3) fL Plt Count 353 (182-369) K/mm3 MPV 8.1 L (9.4-12.3) fl Neut % (Auto) 82.1 H (34.0-71.1) % Lymph % (Auto) 12.1 L (19.3-51.7) % [place] % (Auto) 4.7 (4.7-12.5) % Eos % (Auto) 0.3 L (0.7-5.8) Baso % (Auto) 0.6 (0.1-1.2) % Neut # (Auto) 8.59 H (1.56-6.13) K/mm3 Lymph # (Auto) 1.27 (1.18-3.74) K/mm3 [place] # (Auto) 0.49 H (0.24-0.36) K/mm3 Eos # (Auto) 0.03 L (0.04-0.36) K/mm3 Baso # (Auto) 0.06 (0.01-0.08) K/mm3 Manual Slide Review Normal smear Sodium 138 (136-145) mEq/L Potassium 4.1 (3.5-5.1) mEq/L Chloride 101 (98-107) mEq/L Carbon Dioxide 23 (21-32) mEq/L Anion Gap 18.1 H (5-15) BUN 8 (7-18) mg/dL Creatinine 0.8 (0.55-1.02) mg/dL Est Cr Clr Drug Dosing 86.63 mL/min Estimated GFR (MDRD) > 60 (>60) mL/min BUN/Creatinine Ratio 10.0 L (14-18) Glucose 107 H (74-106) mg/dL Calcium 10.1 (8.5-10.1) mg/dL Phosphorus (2.6-4.7) mg/dL Magnesium (1.8-2.4) mg/dl Total Bilirubin 0.6 (0.2-1.0) mg/dL AST 15 (15-37) U/L ALT 17 (14-59) U/L Alkaline Phosphatase 66 (46-116) U/L Total Protein 7.5 (6.4-8.2) g/dl Albumin 4.1 (3.4-5.0) g/dl Globulin 3.4 gm/dL Albumin/Globulin Ratio 1.2 (1-2) Lipase 105 (73-393) U/L HCG, Qual Negative (NEGATIVE) Urine Color (Yellow) Urine Appearance (Clear) Urine pH (5.0-8.0) Ur Specific [place] (1.005-1.030) Urine Protein (Negative) Urine Glucose (UA) (Negative) Urine Ketones (Negative) Urine Occult Blood (Negative) Urine Nitrite (Negative) Urine Bilirubin (Negative) Urine Urobilinogen (0.2-1.0) Ur Leukocyte Esterase (Negative) Urine RBC (0-5) /hpf Urine WBC (0-5) /hpf Ur Squamous Epith Cells (0-5) /hpf Urine Bacteria (FEW) /hpf Urine Mucus (FEW) /hpf 10/23/19 10/24/19 10/24/19 Range/Units 18:24 07:40 07:40 WBC 13.74 H (3.98-10.04) K/mm3 RBC 4.42 (3.98-5.22) M/mm3 Hgb 12.7 D (11.2-15.7) gm/dl Hct 38.1 (34.1-44.9) % MCV 86.2 (79.4-94.8) fl MCH 28.7 (25.6-32.2) pg MCHC 33.3 (32.2-35.5) g/dl RDW Std Deviation 40.9 (36.4-46.3) fL Plt Count 305 (182-369) K/mm3 MPV 8.3 L (9.4-12.3) fl Neut % (Auto) 84.7 H (34.0-71.1) % Lymph % (Auto) 7.9 L (19.3-51.7) % [place] % (Auto) 7.2 (4.7-12.5) % Eos % (Auto) 0 L (0.7-5.8) Baso % (Auto) 0.1 (0.1-1.2) % Neut # (Auto) 11.65 H (1.56-6.13) K/mm3 Lymph # (Auto) 1.08 L (1.18-3.74) K/mm3 [place] # (Auto) 0.99 H (0.24-0.36) K/mm3 Eos # (Auto) 0.00 L (0.04-0.36) K/mm3 Baso # (Auto) 0.01 (0.01-0.08) K/mm3 Manual Slide Review Abnormal smear Sodium 136 (136-145) mEq/L Potassium 3.9 (3.5-5.1) mEq/L Chloride 101 (98-107) mEq/L Carbon Dioxide 25 (21-32) mEq/L Anion Gap 13.9 (5-15) BUN 4 L (7-18) mg/dL Creatinine 0.7 (0.55-1.02) mg/dL Est Cr Clr Drug Dosing 99.01 mL/min Estimated GFR (MDRD) > 60 (>60) mL/min BUN/Creatinine Ratio 5.7 L (14-18) Glucose 194 H (74-106) mg/dL Calcium 8.4 L D (8.5-10.1) mg/dL Phosphorus 3.9 (2.6-4.7) mg/dL Magnesium 1.6 L (1.8-2.4) mg/dl Total Bilirubin (0.2-1.0) mg/dL AST (15-37) U/L ALT (14-59) U/L Alkaline Phosphatase (46-116) U/L Total Protein (6.4-8.2) g/dl Albumin (3.4-5.0) g/dl Globulin gm/dL Albumin/Globulin Ratio (1-2) Lipase (73-393) U/L HCG, Qual (NEGATIVE) Urine Color Yellow (Yellow) Urine Appearance Clear (Clear) Urine pH 5.5 (5.0-8.0) Ur Specific [place] > or = 1.030 (1.005-1.030) Urine Protein Negative (Negative) Urine Glucose (UA) Negative (Negative) Urine Ketones 3+ H (Negative) Urine Occult Blood 2+ H (Negative) Urine Nitrite Negative (Negative) Urine Bilirubin 1+ H (Negative) Urine Urobilinogen 0.2 (0.2-1.0) Ur Leukocyte Esterase Negative (Negative) Urine RBC 0-5 (0-5) /hpf Urine WBC 0-5 (0-5) /hpf Ur Squamous Epith Cells 0-5 (0-5) /hpf Urine Bacteria Few (FEW) /hpf Urine Mucus Few (FEW) /hpf Med Orders - Current: Current Medications Acetaminophen (Tylenol) 650 mg PO Q4H [facility] Last Admin: 10/24/19 08:21 Dose: 650 mg Docusate Sodium (Colace) 100 mg PO DAILY [facility] Heparin Sodium (Porcine) (Heparin Sodium) 5,000 units SUBCUT Q8H [facility] Last Admin: 10/24/19 08:22 Dose: 5,000 units Hydromorphone HCl (Dilaudid) 0.5 mg IVPUSH Q3H PRN PRN Reason: Breakthrough Pain Last Admin: 10/24/19 08:50 Dose: 0.5 mg Cefazolin Sodium/Dextrose 2 gm (/ Premix) 50 mls @ 100 mls/hr IV Q8H [facility] Stop: 10/24/19 12:59 Last Admin: 10/24/19 03:30 Dose: 100 mls/hr Metronidazole 500 mg/ Premix 100 mls @ 100 mls/hr IV Q8H [facility] Stop: 10/24/19 13:59 Last Admin: 10/24/19 05:38 Dose: Not Given Dextrose/Sodium Chloride (Dextrose 5%-1/2 Ns) 1,000 mls @ 80 mls/hr IV ASDIRECTED [facility] Last Admin: 10/24/19 01:15 Dose: 80 mls/hr Magnesium Sulfate 2 gm/ Premix 50 mls @ 25 mls/hr IV Q1H [facility] Stop: 10/24/19 12:14 Ibuprofen (Motrin) 600 mg PO Q6H [facility] Last Admin: 10/24/19 06:56 Dose: Not Given Ondansetron HCl (Zofran Odt) 4 mg PO Q6H [facility] Last Admin: 10/24/19 04:44 Dose: 4 mg Oxycodone HCl (Oxycodone) 5 mg PO Q4H PRN PRN Reason: Pain (moderate 4-6) Discontinued Medications Al Hydroxide/Mg Hydroxide 30 (ml/ Lidocaine HCl 15 ml) 0 ml PO ONETIME ONE Stop: 10/23/19 16:19 Last Admin: 10/23/19 17:00 Dose: 45 ml Dexamethasone (Dexamethasone) Confirm Administered Dose 20 mg .ROUTE .STK-MED ONE Stop: 10/23/19 21:20 Diphenhydramine HCl (Benadryl) Confirm Administered Dose 50 mg .ROUTE .STK-MED ONE Stop: 10/23/19 21:24 Fentanyl (Sublimaze) 50 mcg IVPUSH ONETIME ONE Stop: 10/23/19 18:58 Last Admin: 10/23/19 19:04 Dose: 50 mcg Fentanyl (Sublimaze) Confirm Administered Dose 250 mcg .ROUTE .STK-MED ONE Stop: 10/23/19 21:19 Fentanyl (Sublimaze) 50 mcg IVPUSH Q5M PRN PRN Reason: Pain Fentanyl (Sublimaze) Confirm Administered Dose 250 mcg .ROUTE .STK-MED ONE Stop: 10/23/19 22:25 Glycopyrrolate () Confirm Administered Dose 1 mg .ROUTE .STK-MED ONE Stop: 10/23/19 22:35 Hydromorphone HCl (Dilaudid) 1 mg IVPUSH ONETIME ONE Stop: 10/23/19 20:10 Last Admin: 10/23/19 20:16 Dose: 1 mg Hydromorphone HCl (Dilaudid) Confirm Administered Dose 1 mg .ROUTE .STK-MED ONE Stop: 10/23/19 22:00 Hydromorphone HCl (Dilaudid) 0.5 mg IVPUSH Q10M PRN PRN Reason: Pain (severe 7-10) Last Admin: 10/24/19 04:44 Dose: 0.5 mg Hydromorphone HCl (Dilaudid) Confirm Administered Dose 0.5 mg .ROUTE .STK-MED ONE Stop: 10/23/19 22:25 Lactated Ringer's (Ringers, Lactated) 1,000 mls @ 999 mls/hr IV .BOLUS ONE Stop: 10/23/19 17:18 Last Admin: 10/23/19 17:00 Dose: 999 mls/hr Cefazolin Sodium/Dextrose 2 gm (/ Premix) 50 mls @ 100 mls/hr IV ONETIME STA Stop: 10/23/19 21:08 Last Admin: 10/23/19 20:47 Dose: 100 mls/hr Metronidazole 500 mg/ Premix 100 mls @ 100 mls/hr IV ONETIME STA Stop: 10/23/19 21:39 Last Admin: 10/23/19 20:48 Dose: 100 mls/hr Lidocaine HCl (Xylocaine-Mpf 1%) Confirm Administered Dose 4 mls @ as directed .ROUTE .STK-MED ONE Stop: 10/23/19 21:19 Lactated Ringer's (Ringers, Lactated) Confirm Administered Dose 1,000 mls @ as directed .ROUTE .STK-MED ONE Stop: 10/23/19 22:35 Iopamidol (Isovue-300 (61%)) 100 ml IVPUSH ONETIME ONE Stop: 10/23/19 19:38 Last Admin: 10/23/19 19:45 Dose: 100 ml Ketamine HCl (Ketalar) Confirm Administered Dose 500 mg .ROUTE .STK-MED ONE Stop: 10/23/19 21:57 Midazolam HCl (Versed 1 Mg/Ml) Confirm Administered Dose 2 mg .ROUTE .STK-MED ONE Stop: 10/23/19 21:19 Neostigmine Methylsulfate (Neostigmine Methylsulfate) Confirm Administered Dose 5 mg .ROUTE .STK-MED ONE Stop: 10/23/19 22:35 Ondansetron HCl (Zofran) 4 mg IVPUSH ONETIME ONE Stop: 10/23/19 16:19 Last Admin: 10/23/19 17:00 Dose: 4 mg Ondansetron HCl (Zofran) Confirm Administered Dose 4 mg .ROUTE .STK-MED ONE Stop: 10/23/19 21:19 Ondansetron HCl (Zofran) 4 mg IVPUSH ONETIME PRN PRN Reason: Nausea/Vomiting Pantoprazole Sodium (Protonix Iv) 80 mg IVPUSH BOLUS ONE Stop: 10/23/19 17:42 Last Admin: 10/23/19 17:52 Dose: 80 mg Propofol (Diprivan 20 Ml) Confirm Administered Dose 200 mg .ROUTE .STK-MED ONE Stop: 10/23/19 21:19 Rocuronium [place] (Zemuron) Confirm Administered Dose 50 mg .ROUTE .STK-MED ONE Stop: 10/23/19 21:19 Sodium Chloride (Saline Flush) 10 ml FLUSH ONETIME PRN PRN Reason: KEEP VEIN OPEN Last Admin: 10/23/19 19:45 Dose: 10 ml Sucralfate (Carafate) 1 gm PO ONETIME ONE Stop: 10/23/19 17:42 Last Admin: 10/23/19 17:53 Dose: 1 gm - Exam Wound/Incisions: Healing Well General: Alert, Oriented, Cooperative HEENT: Pupils Equal Lungs: Clear to Auscultation, Normal Respiratory Effort Cardiovascular: Regular Rate, Regular Rhythm, No Murmurs GI/Abdominal Exam: Soft, No Organomegaly, No Abnormal Bruit, Distended, Tender, Other (Incision is covered with a dressing which is moderately soaked with serosanguinous fluid) Extremities: Normal Inspection Sepsis Event Note - Evaluation Sepsis Screening Result: No Definite Risk - Focused Exam Vital Signs: Vital Signs Temp Temp Pulse Resp BP BP Pulse Ox 10/24/19 03:31 96 112/71 99 10/24/19 03:16 112 H 109/63 99 10/24/19 03:01 92 111/63 100 10/24/19 02:46 92 104/65 100 10/24/19 02:31 88 106/68 100 10/24/19 02:17 90 118/68 100 10/24/19 02:01 90 117/68 100 10/24/19 01:46 81 110/69 100 10/24/19 01:34 84 115/74 100 10/24/19 01:31 79 100 10/24/19 00:41 10/24/19 00:33 97.9 F 66 16 123/88 100 10/24/19 00:15 99.0 F 12 121/79 98 10/24/19 00:01 10/24/19 00:00 10 L 115/82 100 10/23/19 23:45 14 127/85 100 10/23/19 23:30 10 L 131/80 100 10/23/19 23:20 98.1 F 8 L 129/87 100 Pulse Ox 10/24/19 03:31 10/24/19 03:16 10/24/19 03:01 10/24/19 02:46 10/24/19 02:31 10/24/19 02:17 10/24/19 02:01 10/24/19 01:46 10/24/19 01:34 10/24/19 01:31 10/24/19 00:41 100 10/24/19 00:33 10/24/19 00:15 10/24/19 00:01 100 10/24/19 00:00 10/23/19 23:45 10/23/19 23:30 10/23/19 23:20 100 Date Exam was Performed: 10/24/19 Time Exam was Performed: 10:22 - Problem List Review Problem List Initiated/Reviewed/Updated: No - My Orders Last 24 Hours: Active Orders 24 hr Category Date Time Status Patient Status [ADT] Routine ADT 10/23/19 20:40 Active Patient Status [ADT] Routine ADT 10/23/19 23:42 Active Antiembolic Devices [RC] PER UNIT ROUTINE Care 10/23/19 23:44 Active Cooling Warming Measures [RC] ASDIRECTED Care 10/23/19 22:03 Active Incentive Spirometry [RT Incentive Spirometry] [RC] Care 10/23/19 23:47 Active Q1HWA Intake and Output [RC] 04,16 Care 10/23/19 23:43 Active Oxygen Therapy [RC] PRN Care 10/23/19 23:42 Active Pulse Oximetry [RC] ASDIRECTED Care 10/23/19 22:03 Active Up With Assistance [RC] ASDIRECTED Care 10/23/19 23:42 Active VTE/DVT Education [RC] PER UNIT ROUTINE Care 10/23/19 23:42 Active Vital Signs [RC] Q4HR Care 10/23/19 22:03 Active Clear Liquid Diet [DIET] Diet 10/23/19 Dinner Active Acetaminophen [Tylenol] Med 10/23/19 23:45 Active 650 mg PO Q4H Dextrose 5%-0.45% NaCl [Dextrose 5%-1/2 NS] 1,000 ml Med 10/24/19 00:45 Active IV ASDIRECTED Docusate Sodium [Colace] Med 10/24/19 10:30 Ordered 100 mg PO DAILY HYDROmorphone [Dilaudid] Med 10/23/19 23:45 Active 0.5 mg IVPUSH Q3H PRN Heparin Sodium Med 10/24/19 08:00 Active 5,000 units SUBCUT Q8H Ibuprofen [Motrin] Med 10/24/19 00:00 Active 600 mg PO Q6H Magnesium Sulfate/Water [Magnesium Sulfate in Water Med 10/24/19 10:15 Active Premix] 2 gm Premix Bag 1 bag IV Q1H Ondansetron [Zofran ODT] Med 10/23/19 23:45 Active 4 mg PO Q6H ceFAZolin [Ancef] 2 gm Med 10/24/19 04:30 Active Premix Bag 1 bag IV Q8H metroNIDAZOLE/Normal Saline [Flagyl 500 MG in NS 100 ML Med 10/24/19 05:00 Active ] 500 mg Premix Bag 1 bag IV Q8H oxyCODONE Med 10/23/19 23:42 Active 5 mg PO Q4H PRN Isolation [COMM] Routine Oth 10/24/19 01:07 Ordered Schedule Procedure [COMM] Stat Oth 10/23/19 21:00 Ordered Sequential Compression Device [OM.PC] Per Unit Routine Oth 10/23/19 23:43 Ordered Resuscitation Status Routine Resus Stat 10/23/19 23:42 Ordered Medication Orders Acetaminophen (Tylenol) 650 mg PO Q4H [facility] Last Admin: 10/24/19 08:21 Dose: 650 mg Admin: 10/24/19 03:28 Dose: 650 mg Admin: 10/24/19 03:28 Dose: Docusate Sodium (Colace) 100 mg PO DAILY [facility] Heparin Sodium (Porcine) (Heparin Sodium) 5,000 units SUBCUT Q8H [facility] Last Admin: 10/24/19 08:22 Dose: 5,000 units Hydromorphone HCl (Dilaudid) 0.5 mg IVPUSH Q3H PRN PRN Reason: Breakthrough Pain Last Admin: 10/24/19 08:50 Dose: 0.5 mg Admin: 10/24/19 01:15 Dose: 0.5 mg Cefazolin Sodium/Dextrose 2 gm (/ Premix) 50 mls @ 100 mls/hr IV Q8H [facility] Stop: 10/24/19 12:59 Last Admin: 10/24/19 03:30 Dose: 100 mls/hr Metronidazole 500 mg/ Premix 100 mls @ 100 mls/hr IV Q8H [facility] Stop: 10/24/19 13:59 Last Admin: 10/24/19 05:38 Dose: Not Given Admin: 10/24/19 04:05 Dose: 100 mls/hr Dextrose/Sodium Chloride (Dextrose 5%-1/2 Ns) 1,000 mls @ 80 mls/hr IV ASDIRECTED [facility] Last Admin: 10/24/19 01:15 Dose: 80 mls/hr Magnesium Sulfate 2 gm/ Premix 50 mls @ 25 mls/hr IV Q1H [facility] Stop: 10/24/19 12:14 Ibuprofen (Motrin) 600 mg PO Q6H [facility] Last Admin: 10/24/19 06:56 Dose: Not Given Admin: 10/24/19 05:00 Dose: 600 mg Admin: 10/24/19 01:21 Dose: 600 mg Ondansetron HCl (Zofran Odt) 4 mg PO Q6H [facility] Last Admin: 10/24/19 04:44 Dose: 4 mg Admin: 10/24/19 01:24 Dose: 4 mg Oxycodone HCl (Oxycodone) 5 mg PO Q4H PRN PRN Reason: Pain (moderate 4-6) - Plan Plan (Free Text/Narrative):: POD1 s/p ex lap right hemicolectomy for cecal volvulus. Progressing well. - Remove esquivel today - continue current pain regimen - clear liquid diet, may advance to FLD for dinner is tolerating clears - continue IVF for now - encourage ambulation - give abdominal binder - encourage incentive spirometer - replete magnesium
[2019-10-24] MEDS: Magnesium Sulfate/Water 2 GM in Premix Bag 1 BAG IV SCH ×2 (10:59→14:38)
[2019-10-24] MEDS: Docusate Sodium 100 MG Cap PO SCH (10:59)
[2019-10-24] MEDS ORDERED: Metoclopramide 10 MG/2 ML SDV IVPUSH ONE (19:50)
[2019-10-24] MEDS ORDERED: traMADol 50 MG Tab PO PRN (19:51)
[2019-10-25] MEDS: Ibuprofen 600 MG Tab PO SCH ×4 (00:27→17:58)
[2019-10-25] MEDS: Heparin Sodium 5,000 Units/ML Vial SUBCUT SCH ×3 (00:27→16:51)
[2019-10-25] MEDS: Dextrose 5%-0.45% NaCl 1,000 ML IV SCH ×2 (01:42→14:05)
[2019-10-25] MEDS: Acetaminophen 325 MG Tab PO SCH ×5 (04:11→20:38)
[2019-10-25] MEDS: Ondansetron 4 MG Tab.DIS PO SCH ×3 (06:06→16:49)
[2019-10-25] MEDS ORDERED: Scopolamine 1.5 MG Transdermal Patch TRDERM PRN (08:00)
[2019-10-25] MEDS: Docusate Sodium 100 MG Cap PO SCH (08:24)
[2019-10-25] MEDS ORDERED: Calcium Carbonate 500 MG Tab.Chew PO PRN (13:11)
--- NOTE | 2019-10-25 15:42 | PCM.SURGPN ---
- General Info Date of Service: 10/25/19 POD#: 2 Post-Op Diagnosis: Cecal Volvulus Functional Status: Reports: Pain Controlled, Urinating, Incentive Spirometry - Review of Systems General: Reports: Appetite (low) HEENT: Reports: No Symptoms Pulmonary: Reports: No Symptoms Cardiovascular: Reports: No Symptoms Gastrointestinal: Reports: Decreased Appetite Genitourinary: Reports: No Symptoms Musculoskeletal: Reports: No Symptoms Skin: Reports: No Symptoms - Patient Data Vitals - Most Recent: Last Vital Signs Temp 97.9 F 10/25/19 12:10 Pulse 69 10/25/19 12:11 Resp 16 10/25/19 12:10 BP 116/78 10/25/19 12:11 Pulse Ox 100 10/25/19 12:11 Weight - Most Recent: 90.764 kg I&O - Last 24 Hours: Intake & Output 10/25/19 10/25/19 10/25/19 06:59 14:59 22:59 Intake Total 2296 Output Total 750 Balance 1546 Med Orders - Current: Current Medications Acetaminophen (Tylenol) 650 mg PO Q4H [facility] Last Admin: 10/25/19 12:10 Dose: Not Given Calcium Carbonate/Glycine (Tums) 1,000 mg PO Q2H PRN PRN Reason: Indigestion Docusate Sodium (Colace) 100 mg PO DAILY [facility] Last Admin: 10/25/19 08:24 Dose: 100 mg Famotidine (Pepcid) 20 mg PO BEDTIME [facility] Heparin Sodium (Porcine) (Heparin Sodium) 5,000 units SUBCUT Q8H [facility] Last Admin: 10/25/19 08:28 Dose: 5,000 units Hydromorphone HCl (Dilaudid) 0.5 mg IVPUSH Q3H PRN PRN Reason: Breakthrough Pain Last Admin: 10/24/19 12:13 Dose: 0.5 mg Dextrose/Sodium Chloride (Dextrose 5%-1/2 Ns) 1,000 mls @ 80 mls/hr IV ASDIRECTED [facility] Last Admin: 10/25/19 14:05 Dose: 80 mls/hr Ibuprofen (Motrin) 600 mg PO Q6H [facility] Last Admin: 10/25/19 12:11 Dose: Not Given Miscellaneous Information (Remove Patch) 0 ea TRDERM Q72H [facility] Ondansetron HCl (Zofran Odt) 4 mg PO Q6H [facility] Last Admin: 10/25/19 12:09 Dose: 4 mg Scopolamine (Transderm-Scop) 1.5 mg TRDERM Q72H PRN PRN Reason: Nausea/Vomiting Last Admin: 10/25/19 08:23 Dose: 1.5 mg Tramadol HCl (Ultram) 50 mg PO Q6HR PRN PRN Reason: Pain Last Admin: 10/25/19 08:24 Dose: 50 mg Discontinued Medications Al Hydroxide/Mg Hydroxide 30 (ml/ Lidocaine HCl 15 ml) 0 ml PO ONETIME ONE Stop: 10/23/19 16:19 Last Admin: 10/23/19 17:00 Dose: 45 ml Dexamethasone (Dexamethasone) Confirm Administered Dose 20 mg .ROUTE .STK-MED ONE Stop: 10/23/19 21:20 Diphenhydramine HCl (Benadryl) Confirm Administered Dose 50 mg .ROUTE .STK-MED ONE Stop: 10/23/19 21:24 Fentanyl (Sublimaze) 50 mcg IVPUSH ONETIME ONE Stop: 10/23/19 18:58 Last Admin: 10/23/19 19:04 Dose: 50 mcg Fentanyl (Sublimaze) Confirm Administered Dose 250 mcg .ROUTE .STK-MED ONE Stop: 10/23/19 21:19 Fentanyl (Sublimaze) 50 mcg IVPUSH Q5M PRN PRN Reason: Pain Fentanyl (Sublimaze) Confirm Administered Dose 250 mcg .ROUTE .STK-MED ONE Stop: 10/23/19 22:25 Glycopyrrolate () Confirm Administered Dose 1 mg .ROUTE .STK-MED ONE Stop: 10/23/19 22:35 Hydromorphone HCl (Dilaudid) 1 mg IVPUSH ONETIME ONE Stop: 10/23/19 20:10 Last Admin: 10/23/19 20:16 Dose: 1 mg Hydromorphone HCl (Dilaudid) Confirm Administered Dose 1 mg .ROUTE .STK-MED ONE Stop: 10/23/19 22:00 Hydromorphone HCl (Dilaudid) 0.5 mg IVPUSH Q10M PRN PRN Reason: Pain (severe 7-10) Last Admin: 10/24/19 04:44 Dose: 0.5 mg Hydromorphone HCl (Dilaudid) Confirm Administered Dose 0.5 mg .ROUTE .STK-MED ONE Stop: 10/23/19 22:25 Lactated Ringer's (Ringers, Lactated) 1,000 mls @ 999 mls/hr IV .BOLUS ONE Stop: 10/23/19 17:18 Last Admin: 10/23/19 17:00 Dose: 999 mls/hr Cefazolin Sodium/Dextrose 2 gm (/ Premix) 50 mls @ 100 mls/hr IV ONETIME STA Stop: 10/23/19 21:08 Last Admin: 10/23/19 20:47 Dose: 100 mls/hr Metronidazole 500 mg/ Premix 100 mls @ 100 mls/hr IV ONETIME STA Stop: 10/23/19 21:39 Last Admin: 10/23/19 20:48 Dose: 100 mls/hr Lidocaine HCl (Xylocaine-Mpf 1%) Confirm Administered Dose 4 mls @ as directed .ROUTE .STK-MED ONE Stop: 10/23/19 21:19 Lactated Ringer's (Ringers, Lactated) Confirm Administered Dose 1,000 mls @ as directed .ROUTE .STK-MED ONE Stop: 10/23/19 22:35 Cefazolin Sodium/Dextrose 2 gm (/ Premix) 50 mls @ 100 mls/hr IV Q8H [facility] Stop: 10/24/19 12:59 Last Admin: 10/24/19 13:27 Dose: 100 mls/hr Metronidazole 500 mg/ Premix 100 mls @ 100 mls/hr IV Q8H [facility] Stop: 10/24/19 13:59 Last Admin: 10/24/19 13:28 Dose: 100 mls/hr Magnesium Sulfate 2 gm/ Premix 50 mls @ 25 mls/hr IV Q1H [facility] Stop: 10/24/19 12:14 Last Admin: 10/24/19 14:38 Dose: 25 mls/hr Iopamidol (Isovue-300 (61%)) 100 ml IVPUSH ONETIME ONE Stop: 10/23/19 19:38 Last Admin: 10/23/19 19:45 Dose: 100 ml Ketamine HCl (Ketalar) Confirm Administered Dose 500 mg .ROUTE .STK-MED ONE Stop: 10/23/19 21:57 Metoclopramide HCl (Reglan) 5 mg IVPUSH ONETIME ONE Stop: 10/24/19 19:51 Last Admin: 10/24/19 20:21 Dose: 5 mg Midazolam HCl (Versed 1 Mg/Ml) Confirm Administered Dose 2 mg .ROUTE .STK-MED ONE Stop: 10/23/19 21:19 Neostigmine Methylsulfate (Neostigmine Methylsulfate) Confirm Administered Dose 5 mg .ROUTE .STK-MED ONE Stop: 10/23/19 22:35 Ondansetron HCl (Zofran) 4 mg IVPUSH ONETIME ONE Stop: 10/23/19 16:19 Last Admin: 10/23/19 17:00 Dose: 4 mg Ondansetron HCl (Zofran) Confirm Administered Dose 4 mg .ROUTE .STK-MED ONE Stop: 10/23/19 21:19 Ondansetron HCl (Zofran) 4 mg IVPUSH ONETIME PRN PRN Reason: Nausea/Vomiting Oxycodone HCl (Oxycodone) 5 mg PO Q4H PRN PRN Reason: Pain (moderate 4-6) Last Admin: 10/24/19 15:59 Dose: 5 mg Pantoprazole Sodium (Protonix Iv) 80 mg IVPUSH BOLUS ONE Stop: 10/23/19 17:42 Last Admin: 10/23/19 17:52 Dose: 80 mg Propofol (Diprivan 20 Ml) Confirm Administered Dose 200 mg .ROUTE .STK-MED ONE Stop: 10/23/19 21:19 Rocuronium [place] (Zemuron) Confirm Administered Dose 50 mg .ROUTE .STK-MED ONE Stop: 10/23/19 21:19 Sodium Chloride (Saline Flush) 10 ml FLUSH ONETIME PRN PRN Reason: KEEP VEIN OPEN Last Admin: 10/23/19 19:45 Dose: 10 ml Sucralfate (Carafate) 1 gm PO ONETIME ONE Stop: 10/23/19 17:42 Last Admin: 10/23/19 17:53 Dose: 1 gm - Exam Wound/Incisions: Dressing Dry and Intact, Drainage (mild) General: Alert, Oriented, Cooperative, No Acute Distress Cardiovascular: Regular Rate, Regular Rhythm, No Murmurs GI/Abdominal Exam: Soft, No Organomegaly, No Distention, No Mass, Tender (gris- incisional) Skin: Warm, Dry, Intact Sepsis Event Note - Evaluation Sepsis Screening Result: No Definite Risk - Focused Exam Vital Signs: Vital Signs Temp Pulse Resp BP Pulse Ox 10/25/19 12:11 69 116/78 100 10/25/19 12:10 97.9 F 80 16 99 10/25/19 10:55 98.1 F 10/25/19 07:13 97.9 F 84 16 100/57 L 97 10/25/19 04:03 98.2 F 85 16 93/54 L 95 Date Exam was Performed: 10/25/19 Time Exam was Performed: 15:37 - Problem List Review Problem List Initiated/Reviewed/Updated: No - My Orders Last 24 Hours: Active Orders 24 hr Category Date Time Status Communication Order [RC] DAILY Care 10/25/19 13:11 Active BASIC METABOLIC PANEL,BMP [CHEM] Routine Lab 10/26/19 05:00 Ordered CBC WITH AUTO DIFF [HEME] AM Lab 10/26/19 05:11 Ordered CBC WITH AUTO DIFF [HEME] AM Lab 10/27/19 05:11 Ordered CBC WITH AUTO DIFF [HEME] AM Lab 10/28/19 05:11 Ordered MAGNESIUM [CHEM] Routine Lab 10/26/19 05:00 Ordered PHOSPHORUS [CHEM] Routine Lab 10/26/19 05:00 Ordered Calcium Carbonate [Tums] Med 10/25/19 13:11 Active 1,000 mg PO Q2H PRN Famotidine [Pepcid] Med 10/25/19 21:00 Active 20 mg PO BEDTIME Remove Patch Med 10/28/19 08:30 Active 0 ea TRDERM Q72H Scopolamine [Transderm-Scop] Med 10/25/19 08:00 Active 1.5 mg TRDERM Q72H PRN traMADol [Ultram] Med 10/24/19 19:51 Active 50 mg PO Q6HR PRN Medication Orders Acetaminophen (Tylenol) 650 mg PO Q4H [facility] Last Admin: 10/25/19 12:10 Dose: Not Given Admin: 10/25/19 08:24 Dose: 650 mg Admin: 10/25/19 04:11 Dose: 650 mg Admin: 10/24/19 22:54 Dose: 650 mg Admin: 10/24/19 18:55 Dose: 650 mg Admin: 10/24/19 16:01 Dose: 650 mg Admin: 10/24/19 12:13 Dose: 650 mg Admin: 10/24/19 08:21 Dose: 650 mg Admin: 10/24/19 03:28 Dose: 650 mg Admin: 10/24/19 03:28 Dose: Calcium Carbonate/Glycine (Tums) 1,000 mg PO Q2H PRN PRN Reason: Indigestion Docusate Sodium (Colace) 100 mg PO DAILY [facility] Last Admin: 10/25/19 08:24 Dose: 100 mg Admin: 10/24/19 10:59 Dose: 100 mg Famotidine (Pepcid) 20 mg PO BEDTIME [facility] Heparin Sodium (Porcine) (Heparin Sodium) 5,000 units SUBCUT Q8H [facility] Last Admin: 10/25/19 08:28 Dose: 5,000 units Admin: 10/25/19 00:27 Dose: 5,000 units Admin: 10/24/19 16:02 Dose: 5,000 units Admin: 10/24/19 08:22 Dose: 5,000 units Hydromorphone HCl (Dilaudid) 0.5 mg IVPUSH Q3H PRN PRN Reason: Breakthrough Pain Last Admin: 10/24/19 12:13 Dose: 0.5 mg Admin: 10/24/19 08:50 Dose: 0.5 mg Admin: 10/24/19 01:15 Dose: 0.5 mg Dextrose/Sodium Chloride (Dextrose 5%-1/2 Ns) 1,000 mls @ 80 mls/hr IV ASDIRECTED [facility] Last Admin: 10/25/19 14:05 Dose: 80 mls/hr Infusion: 10/25/19 14:05 Dose: 80 mls/hr Admin: 10/25/19 01:42 Dose: 80 mls/hr Infusion: 10/25/19 01:42 Dose: 80 mls/hr Admin: 10/24/19 13:36 Dose: 80 mls/hr Infusion: 10/24/19 13:36 Dose: 80 mls/hr Admin: 10/24/19 01:15 Dose: 80 mls/hr Ibuprofen (Motrin) 600 mg PO Q6H [facility] Last Admin: 10/25/19 12:11 Dose: Not Given Admin: 10/25/19 06:06 Dose: 600 mg Admin: 10/25/19 00:27 Dose: 600 mg Admin: 10/24/19 17:58 Dose: 600 mg Admin: 10/24/19 12:12 Dose: 600 mg Admin: 10/24/19 06:56 Dose: Not Given Admin: 10/24/19 05:00 Dose: 600 mg Admin: 10/24/19 01:21 Dose: 600 mg Miscellaneous Information (Remove Patch) 0 ea TRDERM Q72H [facility] Ondansetron HCl (Zofran Odt) 4 mg PO Q6H [facility] Last Admin: 10/25/19 12:09 Dose: 4 mg Admin: 10/25/19 06:06 Dose: 4 mg Admin: 10/24/19 22:54 Dose: 4 mg Admin: 10/24/19 17:58 Dose: 4 mg Admin: 10/24/19 12:12 Dose: 4 mg Admin: 10/24/19 04:44 Dose: 4 mg Admin: 10/24/19 01:24 Dose: 4 mg Scopolamine (Transderm-Scop) 1.5 mg TRDERM Q72H PRN PRN Reason: Nausea/Vomiting Last Admin: 10/25/19 08:23 Dose: 1.5 mg Tramadol HCl (Ultram) 50 mg PO Q6HR PRN PRN Reason: Pain Last Admin: 10/25/19 08:24 Dose: 50 mg - Plan Plan (Free Text/Narrative):: Patient is POD2 s/p ex lap, right hemicolectomy for cecal volvulus. She had some nausea last night after oxycodone, we changed this to Tramadol. Still has some nausea this AM. - Continue clears for today due to nausea - Start scopolamine patch and Pepcid - continue IVF - Encourage ambulation and physical activity in general - Pain control with scheduled NSAIDS, Tramadol and dilaudid PRN
[2019-10-25] MEDS: Famotidine 20 MG Tab PO SCH (20:38)
[2019-10-26] MEDS: Acetaminophen 325 MG Tab PO SCH ×6 (00:39→20:25)
[2019-10-26] MEDS: Heparin Sodium 5,000 Units/ML Vial SUBCUT SCH ×3 (00:39→16:32)
[2019-10-26] MEDS: Ibuprofen 600 MG Tab PO SCH ×4 (00:39→18:22)
[2019-10-26] MEDS: Ondansetron 4 MG Tab.DIS PO SCH ×2 (00:39→05:55)
[2019-10-26] MEDS: Dextrose 5%-0.45% NaCl 1,000 ML IV SCH (03:10)
[2019-10-26] MEDS ORDERED: Ondansetron 4 MG Tab.DIS PO PRN (07:34)
[2019-10-26] MEDS: Docusate Sodium 100 MG Cap PO SCH (08:16)
--- NOTE | 2019-10-26 18:06 | PCM.SURGPN ---
- General Info Date of Service: 10/26/19 POD#: 2 Post-Op Diagnosis: Cecal volvulus Functional Status: Reports: Pain Controlled, Ambulating - Review of Systems General: Reports: No Symptoms Pulmonary: Reports: No Symptoms Cardiovascular: Reports: No Symptoms Gastrointestinal: Reports: No Symptoms - Patient Data Vitals - Most Recent: Last Vital Signs Temp 98.1 F 10/26/19 13:59 Pulse 75 10/26/19 13:59 Resp 16 10/26/19 13:59 BP 118/86 10/26/19 13:59 Pulse Ox 99 10/26/19 13:59 Weight - Most Recent: 87.634 kg I&O - Last 24 Hours: Intake & Output 10/26/19 10/26/19 10/26/19 06:59 14:59 22:59 Intake Total 1756 1300 40 Output Total 1650 Balance 106 1300 40 Lab Results Last 24 Hrs: Laboratory Results - last 24 hr 10/26/19 10/26/19 Range/Units 05:10 05:10 WBC 6.13 (3.98-10.04) K/mm3 RBC 3.75 L (3.98-5.22) M/mm3 Hgb 10.7 L D (11.2-15.7) gm/dl Hct 33.3 L (34.1-44.9) % MCV 88.8 (79.4-94.8) fl MCH 28.5 (25.6-32.2) pg MCHC 32.1 L (32.2-35.5) g/dl RDW Std Deviation 42.2 (36.4-46.3) fL Plt Count 272 (182-369) K/mm3 MPV 8.4 L (9.4-12.3) fl Neut % (Auto) 59.5 (34.0-71.1) % Lymph % (Auto) 29.2 (19.3-51.7) % [place]ickson % (Auto) 9.1 (4.7-12.5) % Eos % (Auto) 1.5 (0.7-5.8) Baso % (Auto) 0.5 (0.1-1.2) % Neut # (Auto) 3.65 (1.56-6.13) K/mm3 Lymph # (Auto) 1.79 (1.18-3.74) K/mm3 [place] # (Auto) 0.56 H (0.24-0.36) K/mm3 Eos # (Auto) 0.09 (0.04-0.36) K/mm3 Baso # (Auto) 0.03 (0.01-0.08) K/mm3 Sodium 140 (136-145) mEq/L Potassium 3.5 (3.5-5.1) mEq/L Chloride 105 (98-107) mEq/L Carbon Dioxide 27 (21-32) mEq/L Anion Gap 11.5 (5-15) BUN 4 L (7-18) mg/dL Creatinine 0.6 (0.55-1.02) mg/dL Est Cr Clr Drug Dosing 115.51 mL/min Estimated GFR (MDRD) > 60 (>60) mL/min BUN/Creatinine Ratio 6.7 L (14-18) Glucose 111 H (74-106) mg/dL Calcium 8.4 L (8.5-10.1) mg/dL Phosphorus 2.8 (2.6-4.7) mg/dL Magnesium 2.0 (1.8-2.4) mg/dl Med Orders - Current: Current Medications Acetaminophen (Tylenol) 650 mg PO 0800,1200,1600,2000 [facility] Last Admin: 10/26/19 16:29 Dose: 650 mg Calcium Carbonate/Glycine (Tums) 1,000 mg PO Q2H PRN PRN Reason: Indigestion Last Admin: 10/26/19 10:36 Dose: 1,000 mg Docusate Sodium (Colace) 100 mg PO DAILY [facility] Last Admin: 10/26/19 08:16 Dose: 100 mg Famotidine (Pepcid) 20 mg PO BEDTIME [facility] Last Admin: 10/25/19 20:38 Dose: 20 mg Heparin Sodium (Porcine) (Heparin Sodium) 5,000 units SUBCUT Q8H [facility] Last Admin: 10/26/19 16:32 Dose: 5,000 units Ibuprofen (Motrin) 600 mg PO 0600,1200,1800 [facility] Last Admin: 10/26/19 11:25 Dose: 600 mg Miscellaneous Information (Remove Patch) 0 ea TRDERM Q72H [facility] Ondansetron HCl (Zofran Odt) 4 mg PO Q6H PRN PRN Reason: Nausea/Vomiting Last Admin: 10/26/19 11:31 Dose: 4 mg Scopolamine (Transderm-Scop) 1.5 mg TRDERM Q72H PRN PRN Reason: Nausea/Vomiting Last Admin: 10/25/19 08:23 Dose: 1.5 mg Tramadol HCl (Ultram) 50 mg PO Q6HR PRN PRN Reason: Pain Last Admin: 10/25/19 08:24 Dose: 50 mg Discontinued Medications Acetaminophen (Tylenol) 650 mg PO Q4H [facility] Last Admin: 10/26/19 03:12 Dose: 650 mg Al Hydroxide/Mg Hydroxide 30 (ml/ Lidocaine HCl 15 ml) 0 ml PO ONETIME ONE Stop: 10/23/19 16:19 Last Admin: 10/23/19 17:00 Dose: 45 ml Dexamethasone (Dexamethasone) Confirm Administered Dose 20 mg .ROUTE .STK-MED ONE Stop: 10/23/19 21:20 Diphenhydramine HCl (Benadryl) Confirm Administered Dose 50 mg .ROUTE .STK-MED ONE Stop: 10/23/19 21:24 Fentanyl (Sublimaze) 50 mcg IVPUSH ONETIME ONE Stop: 10/23/19 18:58 Last Admin: 10/23/19 19:04 Dose: 50 mcg Fentanyl (Sublimaze) Confirm Administered Dose 250 mcg .ROUTE .STK-MED ONE Stop: 10/23/19 21:19 Fentanyl (Sublimaze) 50 mcg IVPUSH Q5M PRN PRN Reason: Pain Fentanyl (Sublimaze) Confirm Administered Dose 250 mcg .ROUTE .STK-MED ONE Stop: 10/23/19 22:25 Glycopyrrolate () Confirm Administered Dose 1 mg .ROUTE .STK-MED ONE Stop: 10/23/19 22:35 Hydromorphone HCl (Dilaudid) 1 mg IVPUSH ONETIME ONE Stop: 10/23/19 20:10 Last Admin: 10/23/19 20:16 Dose: 1 mg Hydromorphone HCl (Dilaudid) Confirm Administered Dose 1 mg .ROUTE .STK-MED ONE Stop: 10/23/19 22:00 Hydromorphone HCl (Dilaudid) 0.5 mg IVPUSH Q10M PRN PRN Reason: Pain (severe 7-10) Last Admin: 10/24/19 04:44 Dose: 0.5 mg Hydromorphone HCl (Dilaudid) Confirm Administered Dose 0.5 mg .ROUTE .STK-MED ONE Stop: 10/23/19 22:25 Hydromorphone HCl (Dilaudid) 0.5 mg IVPUSH Q3H PRN PRN Reason: Breakthrough Pain Last Admin: 10/24/19 12:13 Dose: 0.5 mg Lactated Ringer's (Ringers, Lactated) 1,000 mls @ 999 mls/hr IV .BOLUS ONE Stop: 10/23/19 17:18 Last Admin: 10/23/19 17:00 Dose: 999 mls/hr Cefazolin Sodium/Dextrose 2 gm (/ Premix) 50 mls @ 100 mls/hr IV ONETIME STA Stop: 10/23/19 21:08 Last Admin: 10/23/19 20:47 Dose: 100 mls/hr Metronidazole 500 mg/ Premix 100 mls @ 100 mls/hr IV ONETIME STA Stop: 10/23/19 21:39 Last Admin: 10/23/19 20:48 Dose: 100 mls/hr Lidocaine HCl (Xylocaine-Mpf 1%) Confirm Administered Dose 4 mls @ as directed .ROUTE .STK-MED ONE Stop: 10/23/19 21:19 Lactated Ringer's (Ringers, Lactated) Confirm Administered Dose 1,000 mls @ as directed .ROUTE .STK-MED ONE Stop: 10/23/19 22:35 Cefazolin Sodium/Dextrose 2 gm (/ Premix) 50 mls @ 100 mls/hr IV Q8H [facility] Stop: 10/24/19 12:59 Last Admin: 10/24/19 13:27 Dose: 100 mls/hr Metronidazole 500 mg/ Premix 100 mls @ 100 mls/hr IV Q8H [facility] Stop: 10/24/19 13:59 Last Admin: 10/24/19 13:28 Dose: 100 mls/hr Dextrose/Sodium Chloride (Dextrose 5%-1/2 Ns) 1,000 mls @ 80 mls/hr IV ASDIRECTED [facility] Last Admin: 10/26/19 03:10 Dose: 80 mls/hr Magnesium Sulfate 2 gm/ Premix 50 mls @ 25 mls/hr IV Q1H [facility] Stop: 10/24/19 12:14 Last Admin: 10/24/19 14:38 Dose: 25 mls/hr Ibuprofen (Motrin) 600 mg PO Q6H [facility] Last Admin: 10/26/19 05:55 Dose: 600 mg Iopamidol (Isovue-300 (61%)) 100 ml IVPUSH ONETIME ONE Stop: 10/23/19 19:38 Last Admin: 10/23/19 19:45 Dose: 100 ml Ketamine HCl (Ketalar) Confirm Administered Dose 500 mg .ROUTE .STK-MED ONE Stop: 10/23/19 21:57 Metoclopramide HCl (Reglan) 5 mg IVPUSH ONETIME ONE Stop: 10/24/19 19:51 Last Admin: 10/24/19 20:21 Dose: 5 mg Midazolam HCl (Versed 1 Mg/Ml) Confirm Administered Dose 2 mg .ROUTE .STK-MED ONE Stop: 10/23/19 21:19 Neostigmine Methylsulfate (Neostigmine Methylsulfate) Confirm Administered Dose 5 mg .ROUTE .STK-MED ONE Stop: 10/23/19 22:35 Ondansetron HCl (Zofran) 4 mg IVPUSH ONETIME ONE Stop: 10/23/19 16:19 Last Admin: 10/23/19 17:00 Dose: 4 mg Ondansetron HCl (Zofran) Confirm Administered Dose 4 mg .ROUTE .STK-MED ONE Stop: 10/23/19 21:19 Ondansetron HCl (Zofran) 4 mg IVPUSH ONETIME PRN PRN Reason: Nausea/Vomiting Ondansetron HCl (Zofran Odt) 4 mg PO Q6H [facility] Last Admin: 10/26/19 05:55 Dose: 4 mg Oxycodone HCl (Oxycodone) 5 mg PO Q4H PRN PRN Reason: Pain (moderate 4-6) Last Admin: 10/24/19 15:59 Dose: 5 mg Pantoprazole Sodium (Protonix Iv) 80 mg IVPUSH BOLUS ONE Stop: 10/23/19 17:42 Last Admin: 10/23/19 17:52 Dose: 80 mg Propofol (Diprivan 20 Ml) Confirm Administered Dose 200 mg .ROUTE .STK-MED ONE Stop: 10/23/19 21:19 Rocuronium [place] (Zemuron) Confirm Administered Dose 50 mg .ROUTE .STK-MED ONE Stop: 10/23/19 21:19 Sodium Chloride (Saline Flush) 10 ml FLUSH ONETIME PRN PRN Reason: KEEP VEIN OPEN Last Admin: 10/23/19 19:45 Dose: 10 ml Sucralfate (Carafate) 1 gm PO ONETIME ONE Stop: 10/23/19 17:42 Last Admin: 10/23/19 17:53 Dose: 1 gm - Exam Wound/Incisions: Healing Well, No Drainage General: Alert, Oriented, Cooperative Lungs: Clear to Auscultation, Normal Respiratory Effort Cardiovascular: Regular Rate, Regular Rhythm GI/Abdominal Exam: Soft, Non-Tender, No Organomegaly, No Distention, No Mass Extremities: Normal Inspection Skin: Warm, Dry, Intact Sepsis Event Note - Evaluation Sepsis Screening Result: No Definite Risk - Focused Exam Vital Signs: Vital Signs Temp Pulse Resp BP Pulse Ox 10/26/19 13:59 98.1 F 75 16 118/86 99 10/26/19 08:14 97.6 F 10/26/19 08:05 97.5 F 84 18 116/72 97 Date Exam was Performed: 10/26/19 Time Exam was Performed: 18:02 - Problem List Review Problem List Initiated/Reviewed/Updated: No - My Orders Last 24 Hours: Active Orders 24 hr Category Date Time Status Regular Diet [DIET] Diet 10/26/19 Dinner Ordered Acetaminophen [Tylenol] Med 10/26/19 08:00 Active 650 mg PO 0800,1200,1600,2000 Famotidine [Pepcid] Med 10/25/19 21:00 Active 20 mg PO BEDTIME Ibuprofen [Motrin] Med 10/26/19 12:00 Active 600 mg PO 0600,1200,1800 Ondansetron [Zofran ODT] Med 10/26/19 07:34 Active 4 mg PO Q6H PRN Remove Patch Med 10/28/19 08:30 Active 0 ea TRDERM Q72H Medication Orders Acetaminophen (Tylenol) 650 mg PO 0800,1200,1600,2000 [facility] Last Admin: 10/26/19 16:29 Dose: 650 mg Admin: 10/26/19 11:26 Dose: Not Given Admin: 10/26/19 08:14 Dose: 650 mg Calcium Carbonate/Glycine (Tums) 1,000 mg PO Q2H PRN PRN Reason: Indigestion Last Admin: 10/26/19 10:36 Dose: 1,000 mg Docusate Sodium (Colace) 100 mg PO DAILY [facility] Last Admin: 10/26/19 08:16 Dose: 100 mg Admin: 10/25/19 08:24 Dose: 100 mg Admin: 10/24/19 10:59 Dose: 100 mg Famotidine (Pepcid) 20 mg PO BEDTIME [facility] Last Admin: 10/25/19 20:38 Dose: 20 mg Heparin Sodium (Porcine) (Heparin Sodium) 5,000 units SUBCUT Q8H [facility] Last Admin: 10/26/19 16:32 Dose: 5,000 units Admin: 10/26/19 08:16 Dose: 5,000 units Admin: 10/26/19 00:39 Dose: 5,000 units Admin: 10/25/19 16:51 Dose: 5,000 units Admin: 10/25/19 08:28 Dose: 5,000 units Admin: 10/25/19 00:27 Dose: 5,000 units Admin: 10/24/19 16:02 Dose: 5,000 units Admin: 10/24/19 08:22 Dose: 5,000 units Ibuprofen (Motrin) 600 mg PO 0600,1200,1800 [facility] Last Admin: 10/26/19 11:25 Dose: 600 mg Miscellaneous Information (Remove Patch) 0 ea TRDERM Q72H [facility] Ondansetron HCl (Zofran Odt) 4 mg PO Q6H PRN PRN Reason: Nausea/Vomiting Last Admin: 10/26/19 11:31 Dose: 4 mg Scopolamine (Transderm-Scop) 1.5 mg TRDERM Q72H PRN PRN Reason: Nausea/Vomiting Last Admin: 10/25/19 08:23 Dose: 1.5 mg Tramadol HCl (Ultram) 50 mg PO Q6HR PRN PRN Reason: Pain Last Admin: 10/25/19 08:24 Dose: 50 mg - Plan Plan (Free Text/Narrative):: POD 2 s/p ex lap, right hemicolectomy for cecal volvulus. Patient slept well, tolerated clears this morning but was still having mild nausea. Passed flatus. - Advance to regular diet as tolerated today. Once advanced, we will dc IVF and IV meds - Continue to encourage ambulation - OK to let the patient sleep at night, minimize interruptions due to medications administrations and vitals. - If tolerated diet, we can plan to dc home tomorrow.
[2019-10-26] MEDS: Famotidine 20 MG Tab PO SCH (20:25)
[2019-10-27] MEDS: Heparin Sodium 5,000 Units/ML Vial SUBCUT SCH ×2 (00:50→09:47)
[2019-10-27] MEDS: Ibuprofen 600 MG Tab PO SCH ×2 (06:16→12:22)
--- NOTE | 2019-10-27 09:33 | PCM.DCSUM1 ---
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 She struggled with nausea in the hospital but this eventually resolved and the patient tolerated diet. At the time of discharge, she was tolerating diet, taking PO meds, ambulating, voiding and on rooms. air. The patient will follow up with Dr. Washington in 10 days after discharge. Diagnosis: Stroke: No - Discharge Data Discharge Date: 10/27/19 Discharge Disposition: Home, Self-Care 01 Condition: Stable - Referral to Home Health Primary Care Physician: Jelly Lind NP - Patient Summary/Data Operative Procedure(s) Performed: 1. Detorsion of cecal volvulus. 2. Right hemicolectomy Hospital Course: see above - Patient Instructions Diet: Regular Diet as Tolerated Activity: No Lifting Over 10 Pounds (for 8 weeks) Driving: Do Not Drive (until you are off all opioid pain medications) Showering/Bathing: May Shower (Do not rub the incision, just left the water run over and dab to dry. Keep the incision clean.) Wound/Incision Care: Keep Operative Site/Wound Site Clean and Dry Notify Provider of: Fever, Increased Pain, Swelling and Redness, Drainage, Nausea and/or Vomiting - Discharge Plan *PRESCRIPTION DRUG MONITORING PROGRAM REVIEWED*: No *COPY OF PRESCRIPTION DRUG MONITORING REPORT IN PATIENT SAMMIE: No Prescriptions/Med Rec: Pantoprazole Sodium [Protonix] 40 mg PO Q24H #30 tablet. Sucgloria [Carafate] 1 gm PO QIDACANDBED #28 cup Home Medications: Home Meds Pantoprazole Sodium [Protonix] 40 mg PO Q24H #30 tablet. 10/23/19 [Rx] Sucralfate [Carafate] 1 gm PO QIDACANDBED #28 cup 10/23/19 [Rx] Oxygen Therapy Mode: Room Air Patient Handouts: Open Colectomy Forms: ED Department Discharge Referrals: Noy Laureano MD [Physician] - Jelly Lind NP [Primary Care Provider] - - Discharge Summary/Plan Comment DC Time >30 min.: No - Patient Data Vitals - Most Recent: Last Vital Signs Temp 97.3 F 10/27/19 06:15 Pulse 72 10/27/19 06:15 Resp 12 10/27/19 06:15 BP 119/86 10/27/19 06:15 Pulse Ox 97 10/27/19 06:15 Weight - Most Recent: 86.409 kg I&O - Last 24 hours: Intake & Output 10/26/19 10/27/19 10/27/19 22:59 06:59 14:59 Intake Total 840 900 Output Total 700 Balance 840 200 Med Orders - Current: Current Medications Acetaminophen (Tylenol) 650 mg PO 0800,1200,1600,2000 [facility] Last Admin: 10/26/19 20:25 Dose: 650 mg Calcium Carbonate/Glycine (Tums) 1,000 mg PO Q2H PRN PRN Reason: Indigestion Last Admin: 10/26/19 10:36 Dose: 1,000 mg Docusate Sodium (Colace) 100 mg PO DAILY [facility] Last Admin: 10/26/19 08:16 Dose: 100 mg Famotidine (Pepcid) 20 mg PO BEDTIME [facility] Last Admin: 10/26/19 20:25 Dose: 20 mg Heparin Sodium (Porcine) (Heparin Sodium) 5,000 units SUBCUT Q8H [facility] Last Admin: 10/27/19 00:50 Dose: 5,000 units Ibuprofen (Motrin) 600 mg PO 0600,1200,1800 [facility] Last Admin: 10/27/19 06:16 Dose: 600 mg Miscellaneous Information (Remove Patch) 0 ea TRDERM Q72H [facility] Ondansetron HCl (Zofran Odt) 4 mg PO Q6H PRN PRN Reason: Nausea/Vomiting Last Admin: 10/26/19 11:31 Dose: 4 mg Scopolamine (Transderm-Scop) 1.5 mg TRDERM Q72H PRN PRN Reason: Nausea/Vomiting Last Admin: 10/25/19 08:23 Dose: 1.5 mg Tramadol HCl (Ultram) 50 mg PO Q6HR PRN PRN Reason: Pain Last Admin: 10/25/19 08:24 Dose: 50 mg Discontinued Medications Acetaminophen (Tylenol) 650 mg PO Q4H [facility] Last Admin: 10/26/19 03:12 Dose: 650 mg Al Hydroxide/Mg Hydroxide 30 (ml/ Lidocaine HCl 15 ml) 0 ml PO ONETIME ONE Stop: 10/23/19 16:19 Last Admin: 10/23/19 17:00 Dose: 45 ml Dexamethasone (Dexamethasone) Confirm Administered Dose 20 mg .ROUTE .STK-MED ONE Stop: 10/23/19 21:20 Diphenhydramine HCl (Benadryl) Confirm Administered Dose 50 mg .ROUTE .STK-MED ONE Stop: 10/23/19 21:24 Fentanyl (Sublimaze) 50 mcg IVPUSH ONETIME ONE Stop: 10/23/19 18:58 Last Admin: 10/23/19 19:04 Dose: 50 mcg Fentanyl (Sublimaze) Confirm Administered Dose 250 mcg .ROUTE .STK-MED ONE Stop: 10/23/19 21:19 Fentanyl (Sublimaze) 50 mcg IVPUSH Q5M PRN PRN Reason: Pain Fentanyl (Sublimaze) Confirm Administered Dose 250 mcg .ROUTE .STK-MED ONE Stop: 10/23/19 22:25 Glycopyrrolate () Confirm Administered Dose 1 mg .ROUTE .STK-MED ONE Stop: 10/23/19 22:35 Hydromorphone HCl (Dilaudid) 1 mg IVPUSH ONETIME ONE Stop: 10/23/19 20:10 Last Admin: 10/23/19 20:16 Dose: 1 mg Hydromorphone HCl (Dilaudid) Confirm Administered Dose 1 mg .ROUTE .STK-MED ONE Stop: 10/23/19 22:00 Hydromorphone HCl (Dilaudid) 0.5 mg IVPUSH Q10M PRN PRN Reason: Pain (severe 7-10) Last Admin: 10/24/19 04:44 Dose: 0.5 mg Hydromorphone HCl (Dilaudid) Confirm Administered Dose 0.5 mg .ROUTE .STK-MED ONE Stop: 10/23/19 22:25 Hydromorphone HCl (Dilaudid) 0.5 mg IVPUSH Q3H PRN PRN Reason: Breakthrough Pain Last Admin: 10/24/19 12:13 Dose: 0.5 mg Lactated Ringer's (Ringers, Lactated) 1,000 mls @ 999 mls/hr IV .BOLUS ONE Stop: 10/23/19 17:18 Last Admin: 10/23/19 17:00 Dose: 999 mls/hr Cefazolin Sodium/Dextrose 2 gm (/ Premix) 50 mls @ 100 mls/hr IV ONETIME STA Stop: 10/23/19 21:08 Last Admin: 10/23/19 20:47 Dose: 100 mls/hr Metronidazole 500 mg/ Premix 100 mls @ 100 mls/hr IV ONETIME STA Stop: 10/23/19 21:39 Last Admin: 10/23/19 20:48 Dose: 100 mls/hr Lidocaine HCl (Xylocaine-Mpf 1%) Confirm Administered Dose 4 mls @ as directed .ROUTE .STK-MED ONE Stop: 10/23/19 21:19 Lactated Ringer's (Ringers, Lactated) Confirm Administered Dose 1,000 mls @ as directed .ROUTE .STK-MED ONE Stop: 10/23/19 22:35 Cefazolin Sodium/Dextrose 2 gm (/ Premix) 50 mls @ 100 mls/hr IV Q8H [facility] Stop: 10/24/19 12:59 Last Admin: 10/24/19 13:27 Dose: 100 mls/hr Metronidazole 500 mg/ Premix 100 mls @ 100 mls/hr IV Q8H [facility] Stop: 10/24/19 13:59 Last Admin: 10/24/19 13:28 Dose: 100 mls/hr Dextrose/Sodium Chloride (Dextrose 5%-1/2 Ns) 1,000 mls @ 80 mls/hr IV ASDIRECTED [facility] Last Admin: 10/26/19 03:10 Dose: 80 mls/hr Magnesium Sulfate 2 gm/ Premix 50 mls @ 25 mls/hr IV Q1H [facility] Stop: 10/24/19 12:14 Last Admin: 10/24/19 14:38 Dose: 25 mls/hr Ibuprofen (Motrin) 600 mg PO Q6H [facility] Last Admin: 10/26/19 05:55 Dose: 600 mg Iopamidol (Isovue-300 (61%)) 100 ml IVPUSH ONETIME ONE Stop: 10/23/19 19:38 Last Admin: 10/23/19 19:45 Dose: 100 ml Ketamine HCl (Ketalar) Confirm Administered Dose 500 mg .ROUTE .STK-MED ONE Stop: 10/23/19 21:57 Metoclopramide HCl (Reglan) 5 mg IVPUSH ONETIME ONE Stop: 10/24/19 19:51 Last Admin: 10/24/19 20:21 Dose: 5 mg Midazolam HCl (Versed 1 Mg/Ml) Confirm Administered Dose 2 mg .ROUTE .STK-MED ONE Stop: 10/23/19 21:19 Neostigmine Methylsulfate (Neostigmine Methylsulfate) Confirm Administered Dose 5 mg .ROUTE .STK-MED ONE Stop: 10/23/19 22:35 Ondansetron HCl (Zofran) 4 mg IVPUSH ONETIME ONE Stop: 10/23/19 16:19 Last Admin: 10/23/19 17:00 Dose: 4 mg Ondansetron HCl (Zofran) Confirm Administered Dose 4 mg .ROUTE .STK-MED ONE Stop: 10/23/19 21:19 Ondansetron HCl (Zofran) 4 mg IVPUSH ONETIME PRN PRN Reason: Nausea/Vomiting Ondansetron HCl (Zofran Odt) 4 mg PO Q6H [facility] Last Admin: 10/26/19 05:55 Dose: 4 mg Oxycodone HCl (Oxycodone) 5 mg PO Q4H PRN PRN Reason: Pain (moderate 4-6) Last Admin: 10/24/19 15:59 Dose: 5 mg Pantoprazole Sodium (Protonix Iv) 80 mg IVPUSH BOLUS ONE Stop: 10/23/19 17:42 Last Admin: 10/23/19 17:52 Dose: 80 mg Propofol (Diprivan 20 Ml) Confirm Administered Dose 200 mg .ROUTE .STK-MED ONE Stop: 10/23/19 21:19 Rocuronium [place] (Zemuron) Confirm Administered Dose 50 mg .ROUTE .STK-MED ONE Stop: 10/23/19 21:19 Sodium Chloride (Saline Flush) 10 ml FLUSH ONETIME PRN PRN Reason: KEEP VEIN OPEN Last Admin: 10/23/19 19:45 Dose: 10 ml Sucralfate (Carafate) 1 gm PO ONETIME ONE Stop: 10/23/19 17:42 Last Admin: 10/23/19 17:53 Dose: 1 gm
[2019-10-27] MEDS: Acetaminophen 325 MG Tab PO SCH ×2 (09:45→12:23)
[2019-10-27] MEDS: Docusate Sodium 100 MG Cap PO SCH (09:46)
== END 2019-10-27 15:12 | disposition home or self-care (01) | DRG 331 ==
LOC: JD.ED 15:24 → JD.SDS 20:40 → JD.MS 23:42
PROVIDERS: ADMIT Surgery; ATTEND Surgery
PROC: 0DTF0ZZ Resection of Right Large Intestine, Open Approach (ICD-10-PCS; principal; 2019-10-23)
DX: K56.2 Volvulus (principal); Z98.890 Other specified postprocedural states
CPT/HCPCS: 00840; 36415; 74018; 74018-26; 74019; 74019-26; 74177; 74177-26; 80048; 80053; 81001; 83690; 83735; 84100; 84703; 85025; 96361; 96365; 96368; 96375; 99285; 99285-25; A9270-GY; C9113; J0330; J0690; J1100; J1170; J1200; J1644; J2001; J2250; J2405; J2704; J2710; J2765; J3010; J3475; J3490; J7042; J7120; Q9967